=== PATIENT | male | born 1955 | race Caucasian/White ===

== ENCOUNTER 2019-10-28 14:53 | Outpatient (CLI) | payer OTHER, SELFPAY ==
--- NOTE | ~2019-10-28 | CT_ITS ---
EXAMINATION: CT brain wo con DATE: 10/28/2019 16:14 INDICATION: Right headache TECHNIQUE: Computed tomography (CT) of the head was performed without intravenous contrast. The mA wa s adjusted according to patient size. Iterative reconstruction technique was employed. Exam dose: 60 5.33 mGy-cm total exam DLP. COMPARISON: None FINDINGS: There are bilateral carotid siphon internal carotid artery calcifications. There is mild nonspecific diminished attenuation of the subcortical and periventricular cerebral whit e matter, likely due to chronic small vessel ischemic changes. No intracranial mass lesion or hemorrhage or cerebrovascular accident is evident. No midline shift or mass effect. Normal ventricular size. No subdural or epidural hematoma is evident. No orbital mass lesion is detected. No fracture or bone destruction of the cranial vault. A very small mucus retention cyst or polyp is noted in the posterior left maxillary sinus. The includ ed paranasal sinuses and mastoid air cells are otherwise unremarkable. IMPRESSION: Cerebral atherosclerosis and chronic small vessel ischemic changes of the cerebral white matter No acute intracranial finding Reviewed, dictated and finalized at [facility]. Reviewed, dictated and finalized at location [facility].
== END 2019-10-28 14:54 | disposition home or self-care (01) ==
PROVIDERS: PCP Family Medicine
DX: R51 Headache (principal); I67.2 Cerebral atherosclerosis
CPT/HCPCS: 70450

== ENCOUNTER 2024-05-30 02:29 | Emergency (ER) | payer MEDICARE, OTHER, SELFPAY ==
[2024-05-30 02:35] VITALS: BP 138/86; PULSE 103; RESP 14; TEMP 36.3; O2SAT 98
--- NOTE | 2024-05-30 04:49 | PC.NURSE ---
Pt ambulated to desk and stated he was going to go home and go to an UC when they open. Pt then ambulated out of the ED w/ a steady gait.
--- OUTSIDE RECORDS SUMMARY | 2024-06-06 02:43 | XMS_ITS | Continuity of Care Document ---
Author Organization [facility] Address [address] [place] [id number] Care Team Providers Care Superintendent Quarry Name Role Phone Jesus Sanderson Primary Care Physician Encounter [facility] Financial Number [id number] Date(s): 11/15/23 - 11/15/[address] [id number] Discharge Disposition: Home or Self Care Attending Physician: GRETA DEL VALLE Referring Physician: GRETA DEL VALLE Note * Event Display: Authorization to Treat * Event Display: Authorization to Treat Patient Care team information Care Team Personnel Name: Jesus Sanderson MD Position: ZZ FAX ONLY - MD NOT ON STAFF Member Role: Primary Care Physician Address: Address: [address] [place] [address] [place] Care Team Related Persons Name: IJEOMA MORALES
--- OUTSIDE RECORDS SUMMARY | 2024-06-06 02:43 | XMS_ITS | Continuity of Care Document ---
Author Organization [facility] Address [address] [place] [id number] Care Team Providers Care Steel Checker Name Role Phone Jesus Sanderson Primary Care Physician Encounter [facility] Financial Number [id number] Date(s): 10/02/22 - 10/02/[address] [id number] Discharge Disposition: Home or Self Care Attending Physician: Jesus Sanderson MD Admitting Physician: Jesus Sanderson MD Referring Physician: Jesus Sanderson MD Assessment and Plan Future Appointments Appointment Date:11/25/2022 03:30:00 PM Scheduled Provider:Michael Osborne MD Location:[facility] Appointment Type:[facility] VARIOUS EXCEPTIONALITIES TEACHER New Patient EKG study * Event Display: EKG Report * Event Display: EKG Regular * Event Display: EKG Regular Authored Date: [id number] Vent Rate: 46 bpm RR Interval: 1295 msec DE Interval: 189 msec QRS Duration: 107 msec QT Interval: 443 msec QTC Interval: 401 msec P-R-T Minetto: 75 - 86 - 69 degrees SINUS BRADYCARDIA incomplete right bundle-branch block No Priors Available Electronically Signed By: Kel Juares MD [facility] Note * Event Display: Authorization to Treat Authored Date: [id number] * Event Display: Authorization to Treat Authored Date: [id number] Patient Care team information Care Team Personnel Name: Jesus Sanderson MD Position: JEAN FAX ONLY - MD NOT ON STAFF Member Role: Primary Care Physician Address: Address: [address] [place] [address] Care Team Related Persons Name: IJEOMA MORALES
--- OUTSIDE RECORDS SUMMARY | 2024-06-06 02:43 | XMS_ITS | Continuity of Care Document ---
Author Organization [facility] Address [address] [place] [id number] Encounter [facility] Financial Number [id number] Date(s): 11/21/21 - 11/21/[address] [id number] Discharge Disposition: Home or Self Care Attending Physician: Narciso Altamirano MD Referring Physician: Narciso Altamirano MD
--- OUTSIDE RECORDS SUMMARY | 2024-06-06 02:43 | XMS_ITS | Continuity of Care Document ---
Author Name [facility] Organization [facility] Care Team Providers Care Communications Lead Name Role Phone [facility] Unavailable Unavailable Immunizations Combined list of available immunizations from the Department of Defense and Veterans Affairs facilities. Immunization Series Date Given Administered By Site Reaction Lot Number CVX Code Drug Motor Hotel Manager Status Comments Source influenza virus vaccine, whole virus 1 1996 Unknown, Provider [id number] [facility] (CON) complet ed influenza virus vaccine, whole virus DoD meningococcal polysaccharid e vaccine (MPSV4) 1 1996 Unknown, Provider [id number] [facility] (CON) complet ed meningoco ccal polysacch aride vaccine (MPSV4) DoD typhoid vaccine, parenteral, other than acetone-kille d, dried 1 1996 Unknown, Provider [id number] [facility] (CON) complet ed typhoid vaccine, parentera l, other than acetone-k illed, dried DoD hepatitis A vaccine, adult dosage 2 1996 Unknown, Provider [id number] A vaccine, adult dosage DoD tetanus and diphtheria toxoids, adsorbed, preservative free, for adult use (2 Lf of tetanus toxoid and 2 Lf of diphtheria toxoid) 2 1995 Unknown, Provider 09 () complet ed tetanus and diphtheri a toxoids, adsorbed, preservat pablo free, for adult use (2 Lf of tetanus toxoid and 2 Lf of diphtheri a toxoid) DoD hepatitis A vaccine, adult dosage 1 1995 Unknown, Provider 52 () complet ed hepatitis A vaccine, adult dosage DoD tetanus and diphtheria toxoids, adsorbed, preservative free, for adult use (2 Lf of tetanus toxoid and 2 Lf of diphtheria toxoid) 1 1995 Unknown, Provider 09 () complet ed tetanus and diphtheri a toxoids, adsorbed, preservat pablo free, for adult use (2 Lf of tetanus toxoid and 2 Lf of diphtheri a toxoid) [facility] typhoid vaccine, parenteral, acetone-kille d, dried ([place] ) 1 1989 Unknown, Provider 53 () complet ed typhoid vaccine, parentera l, acetone-k illed, dried ([place]. ) [facility] trivalent poliovirus vaccine, live, oral 1 1983 Unknown, Provider 02 () complet ed trivalent polioviru s vaccine, live, oral DoD yellow fever vaccine 1 1983 Unknown, Provider 37 () complet ed yellow fever vaccine [facility] Social History Combined list of available smoking, tobacco, and other social history from Department of Defense and Veterans Affairs facilities. Social History Type Response Date Comment Sourc e This section is an empty social history section. DoD
--- OUTSIDE RECORDS SUMMARY | 2024-06-06 02:43 | XMS_ITS | Continuity of Care Document ---
Author Organization [facility] Address [address] [place] [id number] Care Team Providers Care Bobtail Driver Name Role Phone Jesus Sanderson Primary Care Physician Encounter [facility] Financial Number [id number] Date(s): 08/15/22 - 08/15/[address] [id number] [place] Discharge Disposition: Home or Self Care Attending Physician: Jesus Sanderson MD Admitting Physician: Jesus Sanderson MD Referring Physician: Jesus Sanderosn MD Results Radiology Reports * Exam Date Time Procedure Performing Provider Status 08/15/22 11:39 AM US THYROID PARATHYROID NECK Celina Tompkins Hematology Supervisor; Auth (Verified) Notes: (US THYROID PARATHYROID NECK) Reason For Exam: Thyroiditis, unspecified US THYROID PARATHYROID NECK THYROID SONOGRAPHY. HISTORY: Thyroiditis, unspecified. TECHNIQUE: High frequency real time orlando scale sonography of the thyroid gland. COMPARISON: None available. FINDINGS: The right lobe of the thyroid gland measures 4.9 x 1.8 x 2.0 cm. Echotexture is heterogeneous and color-flow is within normal limits. Cysts or cystic nodules in the upper pole measures 0.7 x 0.5 cm and 0.7 x 0.6 cm. The thyroid isthmus is normal, caliber 4.1 mm. The left lobe measures 4.8 x 1.8 x 2.1 cm. Nodular heterogeneity of echotexture. An anechoic cyst in the upper pole measures 0.5 x 0.4 cm. IMPRESSION: 1. Heterogeneous thyroid parenchyma compatible with thyroiditis. 2. Bilateral subcentimeter cystic nodules or cysts. TI-RADS 1: Benign. No follow-up or needle aspiration is advocated. . Dictating Physician: Steve Kaplan M.D. Releasing Physician: Steve Kaplan M.D. Signature Electronically Authorized Authorized Date/Time: 15-AUG-2022 12:38 pm * Exam Date Time Procedure Performing Provider Status 08/15/22 2:18 PM NM BONE SCAN WHOLE BODY Asia Olivas Advanced Image Enhancement; Auth (Verified) Notes: (NM BONE SCAN WHOLE BODY) Reason For Exam: Malignant neoplasm of prostate NM BONE SCAN WHOLE BODY NUCLEAR MEDICINE WHOLE-BODY BONE SCAN INDICATION: Malignant neoplasm prostate gland. C 61 COMPARISON: NONE. FINDINGS: Delayed anterior and posterior whole-body planar imaging as well as lateral views of the skull and ribs were obtained after intravenous administration of 20 mCi of technetium 99m MDP. There is mild focal increased radiotracer uptake involving the shoulders and knees which is likely degenerative. Normal physiologic uptake seen within the kidneys and urinary bladder. There is no evidence of osseous metastatic disease. IMPRESSION: No evidence of osseous metastatic disease. . Dictating Physician: Pepe Bhatia M.D. Releasing Physician: Pepe Bhatia M.D. Signature Electronically Authorized Authorized Date/Time: 15-AUG-2022 03:55 pm Note * Event Display: Authorization to Treat Authored Date: [id number] * Event Display: Authorization to Treat Authored Date: [id number] * Steve Kaplan M.D.: VERIFY, VERIFY, PERFORM Event Display: Interpretation: Authored Date: [id number] THYROID SONOGRAPHY. HISTORY: Thyroiditis, unspecified. TECHNIQUE: High frequency real time orlando scale sonography of the thyroid gland. COMPARISON: None available. FINDINGS: The right lobe of the thyroid gland measures 4.9 x 1.8 x 2.0 cm. Echotexture is heterogeneous and color-flow is within normal limits. Cysts or cystic nodules in the upper pole measures 0.7 x 0.5 cm and 0.7 x 0.6 cm. The thyroid isthmus is normal, caliber 4.1 mm. The left lobe measures 4.8 x 1.8 x 2.1 cm. Nodular heterogeneity of echotexture. An anechoic cyst in the upper pole measures 0.5 x 0.4 cm. IMPRESSION: 1. Heterogeneous thyroid parenchyma compatible with thyroiditis. 2. Bilateral subcentimeter cystic nodules or cysts. TI-RADS 1: Benign. No follow-up or needle aspiration is advocated. . Dictating Physician: Steve Kaplan M.D. Releasing Physician: Steve Kaplan M.D. Signature Electronically Authorized Authorized Date/Time: 15-AUG-2022 12:38 pm NM Whole body Bone Views * Pepe Bhatia M.D.: VERIFY, VERIFY, PERFORM Event Display: Interpretation: Authored Date: [id number] NUCLEAR MEDICINE WHOLE-BODY BONE SCAN INDICATION: Malignant neoplasm prostate gland. C 61 COMPARISON: NONE. FINDINGS: Delayed anterior and posterior whole-body planar imaging as well as lateral views of the skull and ribs were obtained after intravenous administration of 20 mCi of technetium 99m MDP. There is mild focal increased radiotracer uptake involving the shoulders and knees which is likely degenerative. Normal physiologic uptake seen within the kidneys and urinary bladder. There is no evidence of osseous metastatic disease. IMPRESSION: No evidence of osseous metastatic disease. . Dictating Physician: Pepe Bhatia M.D. Releasing Physician: Pepe Bhatia M.D. Signature Electronically Authorized Authorized Date/Time: 15-AUG-2022 03:55 pm Patient Care team information Care Team Personnel Name: Jesus Sanderson MD Position: ZZ FAX ONLY - MD NOT ON STAFF Member Role: Primary Care Physician Address: Address: [address] [place] [address] [place] Care Team Related Persons Name: IJEOMA MORALES
--- OUTSIDE RECORDS SUMMARY | 2024-06-06 02:44 | XMS_ITS | Encounter Summary ---
Author Organization [facility] Address [address] [place] [address] Care Team Providers Care Paraprofessional Aide Name Role Phone Unavailable Primary Care Provider Unavailabl e Encounter Details Date Type Department Care Team (Late st Contact Info) Description 03/02/2024 External Device Data [facility] ABSTRACTION Provider, Abstract NO ADDRESS ON FILE Social History Tobacco Use Types Packs/Day Years Used Date Smoking Tobacco: Never Assessed Sex and Gender Information Value Date Recorded Sex Assigned at Not on file Gender Identity Not on file Sexual Orientation Not on file documented as of this encounter Plan of Treatment Not on file documented as of this encounter Visit Diagnoses Not on filedocumented in this encounter
--- OUTSIDE RECORDS SUMMARY | 2024-06-06 02:44 | XMS_ITS | Clinical Summary ---
Author Organization [facility] Address [address] [place] [address] Care Team Providers Care Sole Painter Name Role Phone Unavailable Primary Care Provider Unavailabl e Medications Medication Sig Dispensed Refills Start Date End Date Status thyroid, pork, (COAT CHECKER Thyroid) 60 mg tablet Take 1 Tablet (60 mg) by mouth once daily in the evening 90 Tablet 1 02/28/2024 Active tamsulosin (FLOMAX) 0.4 mg capsule Take 1 Capsule (0.4 mg) by mouth daily. 5 Capsule 03/12/2024 Active cephALEXin (KEFLEX) 500 mg capsule Take 1 Capsule (500 mg) by mouth every 12 hours for 7 days. 14 Capsule 05/30/2024 06/06/2024 Active mupirocin (BACTROBAN) 2 % Ointment APPLY TO AFFECTED AREA TWICE DAILY NEEDED. 22 Gram 05/30/2024 Active Encounters Date Type Department Care Team Description 04/07/2024 External Device Data [facility] ABSTRACTION Provider, Abstract 03/09/2024 External Device Data [facility] ABSTRACTION Provider, Abstract from Last 3 Months Social History Tobacco Use Types Packs/Day Years Used Date Smoking Tobacco: Never Assessed Sex and Gender Information Value Date Recorded Sex Assigned at Not on file Gender Identity Not on file Sexual Orientation Not on file Plan of Treatment Health Maintenance Due Date Last Done Comments DTAP/TDAP/TD VACCINES (1 - Tdap) 1973 COLORECTAL SCREENING 12/03/1999 Colorectal Cancer Screening 12/03/1999 FIT-DNA Q 3 years 12/03/1999 FIT/FOBT Q 1 year 12/03/1999 Flex Sig/CT Colonography Q 5 years 12/03/1999 ZOSTER VACCINE (1 of 2) 2004 PNEUMOCOCCAL VACCINE 65+ YEARS (1 of 1 - PCV) 12/03/19 20 INFLUENZA VACCINE (#1) 2024 RSV VACCINE (60+ or ) (1 - 1-dose 75+ series) 2029
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
--- OUTSIDE RECORDS SUMMARY | 2024-06-06 02:44 | XMS_ITS | Encounter Summary ---
Author Organization [facility] Address [address] [place] [address] Care Team Providers Care Radiation Oncology Manager Name Role Phone Unavailable Primary Care Provider [...]
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
--- OUTSIDE RECORDS SUMMARY | 2024-06-06 02:44 | XMS_ITS | Encounter Summary ---
Author Organization [facility] Address [address] [place] [address] Care Team Providers Care Assistant Community Director Name Role Phone Unavailable Primary Care Provider Unavailabl e Encounter Details Date Type Department Care Team (Late st Contact Info) Description 03/09/2024 External Device Data ST[facility] ABSTRACTION Provider, [...]
--- OUTSIDE RECORDS SUMMARY | 2024-06-06 02:44 | XMS_ITS | Encounter Summary ---
Author Organization [facility] Address [address] [place] [address] Care Team Providers Care Administrator Health Care Facility Name Role Phone Unavailable Primary Care Provider Unavailabl e Encounter Details Date Type Department Care Team (Late st Contact Info) Description 04/07/2024 External Device Data ST[facility] ABSTRACTION [...]
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
--- OUTSIDE RECORDS SUMMARY | 2024-06-06 02:44 | XMS_ITS | Data Portability ---
Author Organization [facility], [facility] Address [address] [place] [address] Assessment No assessment recorded. Plan of Treatment Reminders Order Date Submit Date Provider Last Modified By Organization Details Last Modified Time Details Appointments None recorded . Lab PSA, total + free, serum or plasma 020 06/29/19 20 STEPHEN Not available 0 16:39:23 Referral None recorded . Procedures None recorded . Surgeries None recorded . Imaging None recorded . Medication Orders None recorded . Patient TargetsNo targets recorded. Patient Instructions Encounter Date Encounter Id Patient Instructions Last Modified By Organization Details Last Modified Time 06/29/2019 [id number] learning about high blood sugar cwessling Not available 06/29/2019 15:13:05 prostate biopsy: about this test c[place] Not available 06/29/2019 15:11:29 high cholesterol : care instructions cw[place]ling Not available 06/29/2019 15:11:29 Hailey GI Effects cwessling Not availabl e 06/29/2019 15:11:05 Reason for Referral None Reported. Results Created Date Observation Date Name Description Value Unit Range Abnormal Flag Note LastModifiedBy Organization Detail LastModifiedTime 11/27/19 22 MRI, prost ate, w/wo contr ast No observ ation record ed. cwessling Not Available 2021 23:54:31 Result Notes None recorded. Problems No Known Problems Procedures Surgical History None recorded. Imaging Results Imaging Date Name Status LastModified by Organiz ation Details LastModified Time 11/26/2021 MRI, prostate, w/wo contrast completed cw[place]ling Information not available 11/26/2021 23:54:31 Procedure Notes None recorded. Medical Equipment None Reported. Allergies No known drug allergies Medications Not known to be on any medication Vitals Date Recorded Body height Body mass index (BMI) Body weight Heart rate Systolic blood pressure Diastolic blood pressure Provider Name and Address Organization Details Last Updated DateTime 0 185.42 cm 26.3 kg/m2 91929.8 8 g 56 /min 105 mm[Hg] 66 mm[Hg] Anne Shanthi GR[facility] 0 12:58:57 Social History None recorded. Functional Status None recorded. Mental Status None recorded. Family History Relationship Description Onset Age of this Age Resolved Age Notes LastModified by Organization Details LastModified Time Father Hypothyroidi sm smimms Not available 2019 13:01:21 Father Malignant tumor of prostate 75 85 Eventu ally of it with bone metast ases. cwessling Not available 06/29/2019 14:13:31 Brother Malignant tumor of prostate 72 recent ly underw ent surger y. cwessling Not available 06/29/2019 14:15:30 Mother Malignant tumor of breast 75 95 trated with lumpec isela and never recurr ed cwessling Not available 06/29/2019 14:17:12 Sister Ductal carcinoma in situ of breast 65 cwessling Not available 2019 14:17:44 Sister Malignant tumor of oral cavity 57 succes sfully treate d. cwessling Not available 06/29/2019 14:19:24 Medical History Condition Response Coronary Artery Disease N Gout N Kidney Stones N Blood Diseases N Hyperthyroidism N Depression N COPD N Hypothyroidism N Developmental or Behavioral Disorders N Anxiety Disorder N Muscle, Joint, or Bone Problems N Vision or Eye Problems N Arthritis N Head Injury/Concussion N Congenital Anomalies N Cancer N Stroke N ADHD N Bladder or Kidney Problems N Hospital Admission other than N High Cholesterol N Liver Disease N Fibromyalgia N Headaches N Kidney Disease N Ear or Hearing Problems N Thyroid Problems N Skin Problems N Anemia N Constipation N Mental Illness N Diabetes N Bedwetting N Heart Problems/Murmur N Seizures/Epilepsy N Tuberculosis N Diverticulitis N Asthma N Allergies N Reflux/GERD N Heart Disease N Pulmonary Embolism N Hypertension N Chicken Pox Y Autism Spectrum Disorder (ASD) N Osteoporosis N Past Encounters Encounter ID Performer Location Encounter Start Date Encounter Closed Date Diagnosis/Indication Diagnosis SNOMED-CT Code Diagnosis ICD10 Code [id number] Ifeanyi Nascimento MD Main Office [address] [place] [address] 06/29/2019 12:45:10 06/29/2019 15:15:20 Prostate specific antigen above reference range 920881130 R97.20 Chronic steatorrhea 2786 8004 K90.9 Bacterial overgrowth syndrome 23312590 A04.9 Hyperlipidemia 59516045 E78.5 Hyperglycemia 15347620 R 73.9 Health Concerns Section Related Observation LastModified by Organization Detai ls LastModified Time None Recorded Concern Status LastModified by Organization Details LastModified Time None Recorded Advance Directives Directive None Recorded Payers Encounter Date Sequence Insurance Name Policy Number Policy Yang Covered Member ID Yang Member ID Guarantor Name 06/29/2019 1 *SELF PAY* [facility] Marquez Notes Date Note Type Note Provider Name and Address Organization Details Recorded Time 06/29/2019 text/html Get established.Previo us 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 Energy not what it could be. PSA high 4-8 - michelle from 6.7 with 13% free conferring 24% cancer risk; to 8.25 (free not tested) in May 2019. 5th of 9 siblings - has 2 brothers 6 sisters. 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 lives of 37 years in [facility]. 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 Digestion slow intermittent constipation and relies on 3-4/week coffee enemas.< carbsCarbs affect badly - inflammation bloating (processed).Lost from 225 to 185 on Keto diet. TC 252, TG 83, HDL 72, LDL 171 on Keto, A1c was 5.7Core workout in the morning.Daily 2 mile walk. Takes D3 16,000 k/day. Ifeanyi Nascimento MD [address] [facility] [facility], [place], [address], [facility] 06/29/2019 15:13:14
--- OUTSIDE RECORDS SUMMARY | 2024-06-06 02:44 | XMS_ITS | Encounter Summary ---
Author Organization [facility] Address [address] [place] [address]. [place], [place] [address] [place] [address] Care Team Providers Care Rv Mechanic Name Role Phone Josesito Alfred MD Primary Care Provider [phone] Reason for Visit * Reason Comments Back Pain * Physical Therapy (Routine) - Closed Specialty Diagnoses / Procedures Referred By Marco hammond Referred To Contact PHYSICAL THERAPY / [facility] Physical Therapy Diagnoses Cervicalgia Low back pain Other chronic pain neck/back/knee pain Procedures EVAL 60 MIN Josesito Alfred MD [address] [place] [address] Phone: tel: fax: Lucy Malave, PT Referral ID Status Reason Start Date Expiration Date Visits Re quested Visits Authorized [id number] Closed 02/04/2018 02/05/2019 12 12 Encounter Details Date Type Department Care Team (Late st Contact Info) Description 03/04/2018 5:15 PM CDT Office Visit [facility] Physical Therapy [address] [place] [address], [address] [place] [address] Josesito Alfred MD [address] [place] [address] Lucy Malave, PT Back Pain Social History Tobacco Use Types Packs/Day Years Used Date Smoking Tobacco: Never Assessed Sex and Gender Information Value Date Recorded Sex Assigned at Not on file Legal Sex Male 11:18 AM CDT Gender Identity Not on file Sexual Orientation Not on file documented as of this encounter Progress Notes * Lucy Singh Frieda, PT - 03/04/2018 5:15 PM CDT @SHMUEL@ Dept Physical Therapy Progress Note Patient name: Jama Marquez : 1955 Date: 03/04/18 Diagnosis (medical/treatment): The primary encounter diagnosis was Chronic bilateral low back pain without sciatica. Diagnoses of Acute pain of right knee and Neck pain were also pertinent to this visit. Date of reporting period from 02/04/2018 to 03/04/2018 Visits: 7 Cancel/No shows: 0 Subjective: Pain Level: 1/10 Current Function: Able to put pants on while standing without pain. Sleeping through the night. No pain bending over. When lifts and caries with his left UE the pain he has in his left forearm lima a2. When not using forearm does not have pain. Patient Goals: 1. To be stronger. MET 2. To be Pain free. MET Objective Data: Eval Status (02/04/2018) Current Status (03/04/2019) Posture: standing slight sway back posture, weight shifted left, right knee slightly bent , scapulae elevated And slightly abducted. Sits with head severely forward and extended. *Posture: standing slight sway back posture, weight shifted left, right knee slightly bent , scapulae elevated And slightly abducted. Sits with head severely forward and extended. Lumbar AROM: Flexion:WNL minimal central lumbar/sacral pain Extension:30 % pain across lumbar/sacral region Side glide:75% right and left Rotation:60% right and left. Cervical AROM: Flexion: WNL tightness Extension WNL no pain Side bending 30 degrees right no pain and 20 degrees left with pain Rotation: 60 degrees right and left no pain Lumbar AROM: Flexion:WNL Extension:100 % no pain. Side glide:100% right and left Rotation:WNL right and left. Cervical AROM: Flexion: WNL tightness Extension WNL no pain Side bending 35 degrees right no pain and 32 degrees left with pain Rotation: 65 degrees right and left no pain Strength: LE Hip flexion: 4+ R&L Hip extension:$ R&L substitutes trunk rotation. Hip ER:4 R&L Hip IR: 4 R&L Hip abduction:4- R&L Hip adduction:4 R&L ?? Knee extension: 4+ R&L Knee flexion: 4+ R&L ?? Core: Upper abdominals:4 Lower abdominals:4- Back extensors:4- Strength: LE Hip flexion: 4+ R&L Hip extension:$ R&L substitutes trunk rotation. Hip ER:4+ R&L Hip IR: 4 +R&L Hip abduction:4 R&L Hip adduction:4 R&L ?? Knee extension: 4+ R&L Knee flexion: 4+ R&L ?? Core: Upper abdominals:4 Lower abdominals:4- Back extensors:4 Good SI movement and alignment during Marching and side bending test for 3 visits. Palpation: Very tender to palpation of suboccipital , pectoral , hip flexors and lumbar paraspinal muscles. Palpation: Minimally tender to palpation of left wrist extensor muscles. Posture: standing slight sway back posture, weight shifted left, right knee slightly bent , scapulae elevated And slightly abducted. Sits with head severely forward and extended. Posture: standing erect without sway back posture, weight even between LE , scapulae only slightly elevated And slightlyabducted. Sits with head aligned over shoulder. See flow sheet for today's treatment. Therapy Goals: (Goals to be met by 03/08/2018) 1. Increase ROM of cervical and lumbar spine to WNL for side bending and rotation so patient can put pants on without pain and can turn his head freely when driving.MET 2. Good Posture/body Mechanics stand erect without sway back posture with moderate lumbar lordosis and head aligned over shoulders.Mostly Met. 3. Independent HEP for trunk, LE and cervical ROM, strengthening and stretching.MET 4. Decrease pain 0-1 on 0-10 scale so patient consistently sleeps through the night.MET 5. Decrease muscle spasm/tissue tension in cervical, left elbow Lumbar, and pelvic region PartiallyMet 6. Increase strength 4+ through out hip muscle, and 4 through out core so patient is able to Put his pants on without pain and can turn head freely while driving. 7. Other: Good SI movement and alignment during marching and side bending test for 3 visits. Assessment Statement: Patient has Met or partially met personal and PT goals. Patient would like tohold out patient therapy for two weeks to continue with home exercises and to see if improvements stay. Non-Medicare Recommendations: Hold therapy for 2 weeks. Therapist: ASHLEY MALAVE PT Date: 03/04/18 Time: 5:30 PM I certify that the above rehabilitative services are required, authorized, and reviewed. Physician signature: Date: Time: Patient Name: Jama Marquez : 1955 documented in this encounter Plan of Treatment Not on file documented as of this encounter Visit Diagnoses Diagnosis Chronic bilateral low back pain without sciatica- Primary Acute pain of right knee Neck pain Cervicalgia documented in this encounter Care Teams Rv Mechanic Relationship Specialty Start Date End Date Josesito Alfred MD [address] [place] [address] PCP - General FAMILY PRACTICE 02/02/18 documented as of this encounter
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
--- OUTSIDE RECORDS SUMMARY | 2024-06-06 02:44 | XMS_ITS | Clinical Summary ---
Author Organization [facility] Address [address] [place] [address]. [place], [place] [address] [place] [address] Care Team Providers Care Integrative Medicine Physician Name Role Phone Josesito Alfred MD Primary Care Provider [phone] Social History Tobacco Use Types Packs/Day Years Used Date Smoking Tobacco: Never Assessed Sex and Gender Information Value Date Recorded Sex Assigned at Not on file Legal Sex Male 11:18 AM CDT Gender Identity Not on file Sexual Orientation Not on file Plan of Treatment Health Maintenance Due Date Last Done Comments Colorectal Cancer Screening Colonoscopy (10 Years) 1955 Hepatitis C 1972 DTaP, Tdap and Td Vaccines ( 1 - Tdap) 1973 Zoster Vaccines (1 of 2) 2004 Pneumococcal Vaccine: 65+ Ye ars (1 of 1 - PCV) 12/03/2019 COVID-19 Vaccine ( - 2023-2 5 season) 2024 Influenza Adult (#1) 2024 RSV Immunization or 60+ Years (1 - 1-dose 75+ series) 2029 Meningococcal Vaccine Aged Out No mp carol eligible based on patient's age to complete this topic RSV Immunizations Under 20 Months Aged Out No longer eligible based on patient's age to complete this topic Insurance [employer] on file Care Teams Integrative Medicine Physician Relationship Specialty Start Date End Date Josesito Alfred MD [address] [place] [address] PCP - General FAMILY PRACTICE 02/02/18
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
--- OUTSIDE RECORDS SUMMARY | 2024-06-06 03:41 | XMS_ITS | Encounter Summary ---
Author Organization [facility] Address [address] [place] [address]. [place], [place] [address] [place] [address] Care Team Providers Care Oil Lease Broker Name Role Phone Josesito Alfred MD Primary Care Provider [phone] Reason for Visit * Reason Comments Back Pain Neck Pain Jnt Pain/Knee * Physical Therapy (Routine) - Closed Specialty Diagnoses / Procedures Referred By Marco hammond Referred To Contact PHYSICAL THERAPY / [facility] Physical Therapy Diagnoses Cervicalgia Low back pain Other chronic pain neck/back/knee pain Procedures EVAL 60 MIN Josesito Alfred MD [address] [facility] [place] [place] [address] Phone: tel: fax: Lucy Malave PT Referral ID Status Reason Start Date Expiration Date Visits Re quested Visits Authorized [id number] Closed 02/04/2018 02/05/2019 12 12 Encounter Details Date Type Department Care Team (Late st Contact Info) Description 02/04/2018 5:15 PM CDT Office Visit [facility] Physical Therapy [address] [place] [address], [address] [place] [address] Josesito Alfred MD [address] [facility] [place] [address] Lucy Malave, PT Back Pain; [...] Cervicalgia documented in this encounter Care Teams Oil Lease Broker Relationship Specialty Start Date End Date Josesito Alfred MD [address] [place] [address] PCP - General FAMILY PRACTICE 02/02/18 documented as of this encounter
--- OUTSIDE RECORDS SUMMARY | 2024-06-06 03:41 | XMS_ITS | Encounter Summary ---
Author Organization [facility] Address [address] [place] [address]. [place], [place] [address] [place] [address] Care Team Providers Care Chronic Disease Manager Name Role Phone Josesito Alfred MD Primary Care Provider Reason for Visit * Reason Comments Back Pain * Physical Therapy (Routine) - Closed Specialty Diagnoses / Procedures Referred By Marco hammond Referred To Contact PHYSICAL THERAPY / [facility] Physical Therapy Diagnoses Cervicalgia Low back pain Other chronic pain neck/back/knee pain Procedures EVAL 60 MIN Josesito Alfred MD [address] [address] Phone: tel: fax: Lucy Malave, PT Referral ID Status Reason Start Date Expiration Date Visits Re quested Visits Authorized [id number] Closed 02/04/2018 02/05/2019 12 12 Encounter Details Date Type Department Care Team (Late st Contact Info) Description 03/04/2018 5:15 PM CDT Office Visit [facility] Physical Therapy [address] [place] [address], [address] [place] [address] Josesito Alfred MD [address] [address] Lucy Malave, PT Back Pain [...] Cervicalgia documented in this encounter Care Teams Chronic Disease Manager Relationship Specialty Start Date End Date Josesito Alfred MD [address] [place] [address] PCP - General FAMILY PRACTICE 02/02/18 documented as of this encounter
--- OUTSIDE RECORDS SUMMARY | 2024-06-06 03:41 | XMS_ITS | Encounter Summary ---
Author Organization [facility] Address [address] [place] [address]. [place], [place] [address] [place] [address] Care Team Providers Care Mock Up Builder Name Role Phone Josesito Alfred MD Primary Care Provider [phone] Reason for Visit * Reason Comments Back Pain * Physical Therapy (Routine) - Closed Specialty Diagnoses / Procedures Referred By Marco hammond Referred To Contact PHYSICAL THERAPY / [facility] Physical Therapy Diagnoses Cervicalgia Low back pain Other chronic pain neck/back/knee pain Procedures EVAL 60 MIN Josesito Alfred MD [address] [address] Phone: tel: fax: Lucy Malave, PT Referral ID Status Reason Start Date Expiration Date Visits Re quested Visits Authorized [id number] Closed 02/04/2018 02/05/2019 12 12 Encounter Details Date Type Department Care Team (Late st Contact Info) Description 02/27/2018 1:00 PM CDT Office Visit [facility] Physical Therapy [address] [place] [address], [address] [place] [address] Josesito Alfred MD [address] [address] Lucy Malave, PT Back Pain [...] and side bending test. Therapeutic Exercise - 88506 Number of minutes: 25 Exercise: Single leg bridge. 10 reps Exercise: Demonstrated wrist flexion with 3 #. Patient to do as part of HEP on Friday. Exercise: wrist extension stretch 20 second hold times 2 ,1 set with fingers flexed initially and 1set flexing wrist than fingers Exercise: Rep band shoulder IR and ER with blue band 20 reps right and left. Exercise: Sri [place]ankan ball walk out in prone and sitting 10 reps each Exercise: core pulls bilateral flexion and extension 10 reps each.Added unilateral UE flexion 10 reps right and left. Verbal cues to prevent shifting weight Manual Therapy - 62696 Number of minutes: 20 Strain-Counterstrain: to MCND. LCND.Pronator, ANC, Radial head. Brachioradialis. Home Exercise Program Current Home Exercise Program: Added single leg bridge. rwandan ball rollouts supine and prone rep band [...] Cervicalgia documented in this encounter Care Teams Mock Up Builder Relationship Specialty Start Date End Date Josesito Alfred MD [address] [address] PCP - General FAMILY PRACTICE 02/02/18 documented as of this encounter
--- OUTSIDE RECORDS SUMMARY | 2024-06-06 03:41 | XMS_ITS | Encounter Summary ---
Author Organization [facility] Address [address] [place] [address]. [place], [place] [address] [place] [address] Care Team Providers Care Barge Pilot Name Role Phone Josesito Alfred MD Primary Care Provider [phone] Reason for Visit * Reason Comments Back Pain * Physical Therapy (Routine) - Closed Specialty Diagnoses / Procedures Referred By Marco hammond Referred To Contact PHYSICAL THERAPY / [facility] Physical Therapy Diagnoses Cervicalgia Low back pain Other chronic pain neck/back/knee pain Procedures EVAL 60 MIN Josesito Alfred MD [address] [place] [address] Phone: tel: fax: Lucy Malave, PT Referral ID Status Reason Start Date Expiration Date Visits Re quested Visits Authorized [id number] Closed 02/04/2018 02/05/2019 12 12 Encounter Details Date Type Department Care Team (Late st Contact Info) Description 02/23/2018 12:45 PM CDT Office Visit [facility] Physical Therapy [address] [place] [address], [address] [place] [address] Josesito Alfred MD [address] [place] [address] Lucy Malave, PT Back Pain [...] Right anterior innomminate rotation. Therapeutic Exercise - 98472 Number of minutes: 30 Exercise: Contralateral UE [...] prone press up 5 reps Exercise: supine japanese ball DKTC and LTR Manual Therapy - 97029 Number of minutes: 8 Muscle Energy: to correct right anterior innominate rotation. Modalities Number of minutes (Non-Timed Procedures): 20 Electrical Stimulation Unattended - 52373: Pre-modulated Stim with cold pack to mid-thoracic [...] Cervicalgia documented in this encounter Care Teams Barge Pilot Relationship Specialty Start Date End Date Josesito Alfred MD [address] [place] [address] PCP - General FAMILY PRACTICE 02/02/18 documented as of this encounter
--- OUTSIDE RECORDS SUMMARY | 2024-06-06 03:41 | XMS_ITS | Continuity of Care Document ---
Author Name [facility] Organization [facility] Care Team Providers Care Insulation Worker Apprentice Name Role Phone [facility] Unavailable Unavailable Immunizations Combined list of available immunizations from the Department of Defense and Veterans Affairs facilities. Immunization Series Date Given Administered By Site Reaction Lot Number CVX Code Drug Reference Investigator Status Comments Source influenza virus vaccine, whole virus 1 1996 Unknown, Provider [id number] Jesika (CON) complet ed influenza virus vaccine, whole virus DoD meningococcal polysaccharid e vaccine (MPSV4) 1 1996 Unknown, Provider [id number] Jesika (CON) complet ed meningoco ccal polysacch aride vaccine (MPSV4) DoD typhoid vaccine, parenteral, other than acetone-kille d, dried 1 1996 Unknown, Provider [id number] Jesika (CON) complet ed typhoid vaccine, parentera l, other than acetone-k illed, dried DoD hepatitis A vaccine, adult dosage 2 1996 Unknown, Provider [id number] [facility] hepatitis A [...] and 2 Lf of diphtheri a toxoid) [facility] typhoid vaccine, parenteral, acetone-kille d, dried ([place] ) 1 1989 Unknown, Provider 53 () complet ed typhoid vaccine, parentera l, acetone-k illed, dried ([place] ) [facility] trivalent poliovirus vaccine, live, oral 1 1983 Unknown, Provider 02 () complet ed trivalent polioviru s vaccine, live, oral DoD yellow fever vaccine 1 1983 Unknown, Provider 37 () complet ed yellow fever vaccine [facility] Social History Combined list of available smoking, tobacco, and other social history from Department of Defense and Veterans Affairs facilities. Social History Type Response Date Comment Sourc e This section is an empty social history section. DoD
--- OUTSIDE RECORDS SUMMARY | 2024-06-06 03:41 | XMS_ITS | Clinical Summary ---
Author Organization [facility] Address [address] [place] [address]. [place], [place] [address] [place] [address] Care Team Providers Care Station Engineer Chief Name Role Phone Josesito Alfred MD Primary Care Provider [phone] Social History Tobacco Use Types Packs/Day Years [...] MEDICAL REIMBURSEMENTS OF [employer] LIABILITY on file Care Teams Station Engineer Chief Relationship Specialty Start Date End Date Josesito Alfred MD [address] [address] PCP - General FAMILY PRACTICE 02/02/18
--- OUTSIDE RECORDS SUMMARY | 2024-06-06 03:41 | XMS_ITS | Encounter Summary ---
Author Organization [facility] Address [address] [place] [address]. [place], [place] [address] [place] [address] Care Team Providers Care Distribution Sales Manager Name Role Phone Josesito Alfred MD Primary Care Provider [phone] Reason for Visit * Reason Comments Back Pain * Physical Therapy (Routine) - Closed Specialty Diagnoses / Procedures Referred By Contgenevieve t Referred To Contact PHYSICAL THERAPY / [facility] Physical Therapy Diagnoses Cervicalgia Low back pain Other chronic pain neck/back/knee pain Procedures EVAL 60 MIN oJsesito Alfred MD [address] [address] Phone: tel: fax: Lucy Malave, PT Referral ID Status Reason Start Date Expiration Date Visits Re quested Visits Authorized [id number] Closed 02/04/2018 02/05/2019 12 12 Encounter Details Date Type Department Care Team (Late st Contact Info) Description 02/12/2018 1:00 PM CDT Office Visit [facility] Physical Therapy [address] [facility] [facility], [address] [place] [address] Josesito Alfred MD [address] [address] Tereza Henderson, [place] [address] Back Pain Social History Tobacco Use Types [...] OBJECTIVE Treatment provided today: Therapeutic Exercise - 76887 Number of minutes: 15 Exercise: Reviewed HEP Exercise: Adjusted Scap retraction without pushing with arms x10 Exercise: Added cervical retratction x10 Exercise: Abdominal Brace (Sahrhamm)- Ams and legs reciprocating x15-20 reps Exercise: Attempted core pulls with orange and [place] band however felt more in quads so help this exercises. Manual Therapy - 30262 Number of minutes: 30 Joint Mobilization: thoracic [...] Cervicalgia documented in this encounter Care Teams Distribution Sales Manager Relationship Specialty Start Date End Date Josesito Alfred MD [address] [address] PCP - General FAMILY PRACTICE 02/02/18 documented as of this encounter
--- OUTSIDE RECORDS SUMMARY | 2024-06-06 03:41 | XMS_ITS | Encounter Summary ---
Author Organization [facility] Address [address] [place] [address]. [place], [place] [address] [place] [address] Care Team Providers Care Vp Care Management Name Role Phone Josesito Alfred MD Primary Care Provider [phone] Reason for Visit * Reason Comments Back Pain * Physical Therapy (Routine) - Closed Specialty Diagnoses / Procedures Referred By Marco hammond Referred To Contact PHYSICAL THERAPY / [facility] Physical Therapy Diagnoses Cervicalgia Low back pain Other chronic pain neck/back/knee pain Procedures EVAL 60 MIN Josesito Alfred MD [address] [place] [address] Phone: tel: fax: Lucy Malave, PT Referral ID Status Reason Start Date Expiration Date Visits Re quested Visits Authorized [id number] Closed 02/04/2018 02/05/2019 12 12 Encounter Details Date Type Department Care Team (Late st Contact Info) Description 02/13/2018 8:45 AM CDT Office Visit [facility] Physical Therapy [address] [place] [address], [address] [place] [address] Josesito Alfred MD [address] [place] [address] Lucy Malave, PT Back Pain [...] OBJECTIVE Treatment provided today: Therapeutic Exercise - 88215 Number of minutes: 15 Exercise: Reviewed Scapula adduction with depression and abdominal exercise. Exercise: T-wall stretch 30 second hold 3 reps and exercise 10 reps Manual Therapy - 75133 Number of minutes: 45 Strain-Counterstrain: SCS to [...] Cervicalgia documented in this encounter Care Teams Vp Care Management Relationship Specialty Start Date End Date Josesito Alfred MD [address] [address] PCP - General FAMILY PRACTICE 02/02/18 documented as of this encounter
--- OUTSIDE RECORDS SUMMARY | 2024-06-06 03:41 | XMS_ITS | Encounter Summary ---
Author Organization [facility] Address [address] [place] [address]. [place], [place] [address] [place] [address] Care Team Providers Care Commissary Representative Name Role Phone Josesito Alfred MD Primary Care Provider Reason for Visit * Reason Comments Back Pain * Physical Therapy (Routine) - Closed Specialty Diagnoses / Procedures Referred By Marco hammond Referred To Contact PHYSICAL THERAPY / [facility] Physical Therapy Diagnoses Cervicalgia Low back pain Other chronic pain neck/back/knee pain Procedures EVAL 60 MIN Josesito Alfred MD [address] [address] Phone: tel: fax: Lucy Malave, PT Referral ID Status Reason Start Date Expiration Date Visits Re quested Visits Authorized [id number] Closed 02/04/2018 02/05/2019 12 12 Encounter Details Date Type Department Care Team (Late st Contact Info) Description 02/16/2018 4:00 PM CDT Office Visit [facility] Physical Therapy [address] [place] [address], [address] [place] [address] Josesito Alfred MD [address] [address] Lucy Malave, PT Back Pain [...] and side bending test. Therapeutic Exercise - 66442 Number of minutes: 15 Exercise: passive back flexion into prone press up 10 second stretch 5 reps. Exercise: prone press up 10 second hold 10 reps, prone back extension 10 reps verbal cues for cervical retraction vs. extension. Exercise: thoracic extension in sitting 10 second hold x 10 reps. Manual Therapy - 41216 Number of minutes: 25 Mobilization: thoracic PA's from T4 -T10,to increase extension ROM and thoracic distraction in sitting 3 reps. Muscle Energy: to correct left out flair Strain-Counterstrain: left Lower Trap, right thoracolumbar erector spinae, right IL and pectineus, left ING and [place], Modalities Number of minutes (Non-Timed Procedures): 20 Electrical Stimulation Unattended - 15869: Pre-modulated Stim with cold pack to mid-thoracic [...] Cervicalgia documented in this encounter Care Teams Commissary Representative Relationship Specialty Start Date End Date Josesito Alfred MD [address] [address] PCP - General FAMILY PRACTICE 02/02/18 documented as of this encounter
--- OUTSIDE RECORDS SUMMARY | 2024-06-06 03:41 | XMS_ITS | Encounter Summary ---
Author Organization [facility] Address [address] [place] [address]. [place], [place] [address] [place] [address] Care Team Providers Care Firer Retort Name Role Phone Josesito Alfred MD Primary Care Provider [phone] Reason for Visit * Reason Comments Back Pain * Physical Therapy (Routine) - Closed Specialty Diagnoses / Procedures Referred By Marco hammond Referred To Contact PHYSICAL THERAPY / [facility] Physical Therapy Diagnoses Cervicalgia Low back pain Other chronic pain neck/back/knee pain Procedures EVAL 60 MIN Josesito Alfred MD [address] [address] Phone: tel: fax: Lucy Malave, PT Referral ID Status Reason Start Date Expiration Date Visits Re quested Visits Authorized [id number] Closed 02/04/2018 02/05/2019 12 12 Encounter Details Date Type Department Care Team (Late st Contact Info) Description 02/19/2018 1:00 PM CDT Office Visit [facility] Physical Therapy [address] [place] [address], [address] [place] [address] Josesito Alfred MD [address] [address] Lucy Malave, PT Back Pain [...] and side bending test. Therapeutic Exercise - 03975 Number of minutes: 25 Exercise: prone press [...] and exercises 10 reps. Manual Therapy - 64388 Number of minutes: 15 Mobilization: thoracic PA's from T4 -T10,to increase extension ROM and thoracic distraction in sitting 3 reps. Muscle Energy: No corrections needed Strain-Counterstrain: Left prone flexed L2, bilateral serratus posterior inferior to decrease muscle tension in upper lumbar lower thoracic region.. Modalities Number of minutes (Non-Timed Procedures): 20 Electrical Stimulation Unattended - 56565: Pre-modulated Stim with cold pack to mid-thoracic [...] Cervicalgia documented in this encounter Care Teams Firer Retort Relationship Specialty Start Date End Date Josesito Alfred MD [address] [address] PCP - General FAMILY PRACTICE 02/02/18 documented as of this encounter
--- OUTSIDE RECORDS SUMMARY | 2024-06-06 03:42 | XMS_ITS | Clinical Summary ---
Author Organization [facility] Address [address] [place] [address] Care Team Providers Care Accounts Receivable Collector Name Role Phone Unavailable Primary Care Provider Unavailabl e Medications Medication Sig Dispensed Refills Start Date End Date Status thyroid, pork, (FIELD AGENT Thyroid) 60 mg tablet Take 1 Tablet [...]
--- OUTSIDE RECORDS SUMMARY | 2024-06-06 03:42 | XMS_ITS | Encounter Summary ---
Author Organization [facility] Address [address] [place] [address] Care Team Providers Care Automatic Profile Sander Operator Name Role Phone Unavailable Primary Care Provider [...]
--- OUTSIDE RECORDS SUMMARY | 2024-06-06 03:42 | XMS_ITS | Encounter Summary ---
Author Organization [facility] Address [address] [place] [address] Care Team Providers Care Bead Trimmer Name Role Phone Unavailable Primary Care Provider [...]
--- OUTSIDE RECORDS SUMMARY | 2024-06-06 03:42 | XMS_ITS | Encounter Summary ---
Author Organization [facility] Address [address] [place] [address] Care Team Providers Care Wind Farm Engineer Name Role Phone Unavailable Primary Care Provider [...]
--- OUTSIDE RECORDS SUMMARY | 2024-06-06 03:42 | XMS_ITS | Encounter Summary ---
Author Organization [facility] Address [address] [place] [address] Care Team Providers Care Vocal Performer Name Role Phone Unavailable Primary Care Provider [...]
== END 2024-05-30 05:00 | disposition left against medical advice (07) ==
DX: R68.83 Chills (without fever) (principal)
CPT/HCPCS: 99199

== ENCOUNTER 2025-05-14 04:59 | Emergency (ER) | payer MEDICARE, OTHER, SELFPAY ==
--- OUTSIDE RECORDS SUMMARY | 2025-05-13 14:00 | XMS_ITS | Encounter Summary ---
Author Organization [facility] Address [address] [facility] [address] [place] [address] Phone Care Team Providers Care Surveillance Supervisor Name Role Phone Herrera Rivera MD Primary Care Provider Reason for Visit * Consultation (Routine) - Authorized Specialty Diagnoses / Procedures Referred By Marco hammond Referred To Contact Urology Diagnoses Prostate cancer (HCC) Referral, Self [facility] (All Locations) Referral ID Status Reason Start Date Expiration Date Visits Requested Visits Authorized [id number] Authorized Specialty Services Required 05/22/2026 10 10 Encounter Details Date Type Department Care Team (Late st Contact Info) Description 05/13/2025 2:00 PM ASSOCIATE MERCHANT Office Visit [facility] - [facility] Medicine [facility] Advanced Medicine 11th [place] [address] [place] [address] Arturo Mayorga MD [address] [facility] [place] [address] Incomplete bladder emptying (Primary Dx) Social History Tobacco Use Types Packs/Day Years Used Date Smoking Tobacco: Never Assessed Personal Safety Answer Date Recorded Have you ever been in or are you currently in a harmful physical or emotional relationship or is someone making you feel afraid or unsafe? Denies 04/22/2025 Sex and Gender Information Value Date Recorded Sex Assigned at Not on file Legal Sex Male 6:36 AM ASSOCIATE MERCHANT Gender Identity Not on file Sexual Orientation Not on file documented as of this encounter Progress Notes * Arturo Mayorga MD - 05/13/2025 2:00 PM CST Arturo Mayorga M.D., M.S. Professor of Urologic Surgery, [facility] Specializing in Prostate and Kidney Cancer Jama Marquez 1955 Date of Visit: 05/13/2025 Prostate cancer - sought alternative therapies and is followed separately Urinary retention - options remove roy or keep it in, or intermitent cath On flomax Prostate cancer - we discussed that I would defer to his doctors - typically we would PSAs biopsiesto monitor - he gets PSAs every 6 weeks, it is below 6. That is monitored by Dr. Rivera. I told him to be followed by his existing doctors, as my main role is biopsy and prostatectomy, for which he isnt interested. We discussed monitoring, and he has sought alternative treatments in [place]. Pain in his coccyx and other areas - that has resolved - unclear what the cause - this can be followed by his primary. Urinary retention - id recommend Arett or Kody. We discussed that most local urologists can monitor his prostate and enlargement. I told him I typically would evaluate his prostate cancer with biopsies and his BPH with scopes but in general I defer this to the local and community urologists as he may need treatments or procedures which I do not perform. He decided to get out roy today with the understanding that he would have to go to urgent care orseek medical attention if unable to void in 6-8 hours, as he already is here in the afternoon and we would be closed in the clinic. He is going to seek a community urologist to follow him for his urinary retention. He is going to seek medical attention if unable to urinate. As far as his prostate cancer he already has a follow upplan, and he is not interested in routine treatments such as surgery or biopsy. He understands the risk of progression of cancer but he feels he is following his PSA adequately. I will release him from my care with the understanding that he would find a community urologists and I gave him our partners at [facility] and our nurse practitioners who also we would be able to follow him for urinary retention. Thanks for this referral. Arturo Mayorga MD CIATE MERCHANT documented in this encounter Plan of Treatment Not on file documented as of this encounter Visit Diagnoses Diagnosis Incomplete bladder emptying- Primary documented in this encounter Orders Outpatient Referral Count Last Ordered Date Fir st Ordered Date AMB REFERRAL TO UROLOGY 1 05/13/2025 documented in this encounter Care Teams Surveillance Supervisor Relationship Specialty Start Date End Date Herrera Rivera MD [address] [place] [address] PCP - General Family Medicine 04/22/25 documented as of this encounter
--- OUTSIDE RECORDS SUMMARY | 2025-05-13 14:00 | XMS_ITS | Encounter Summary ---
Author Organization [facility] Address [address] [facility] [address] [place] [address] Phone Care Team Providers Care Retail Training Manager Name Role Phone Herrera Rivera MD Primary Care Provider [phone] Reason for Visit * Consultation (Routine) - Authorized Specialty Diagnoses / Procedures Referred By Marco hammond Referred To Contact Urology Diagnoses Prostate cancer (HCC) Referral, Self [facility] (All Locations) Referral ID Status Reason Start Date Expiration Date Visits Requested Visits Authorized [id number] Authorized Specialty Services Required 05/22/2026 10 10 Encounter Details Date Type Department Care Team (Late st Contact Info) Description 05/13/2025 2:00 PM RECTIFYING ATTENDANT Office Visit [facility] - [facility] Medicine Urology [facility] Advanced Medicine 11th [place] [address] [place] [address] Arturo Mayorga MD [address] [facility] [place] [address] Incomplete bladder emptying (Primary Dx) Social History [...] on file Legal Sex Male 6:36 AM RECTIFYING ATTENDANT Gender Identity Not on file Sexual Orientation Not on file documented as of this encounter Progress Notes * Arturo Mayorga MD - 05/13/2025 2:00 PM CST Arturo Mayorga M.D., M.S. Professor of Urologic Surgery, [facility] Specializing in Prostate and Kidney Cancer [...] and he has sought alternative treatments in [place]. Pain in his coccyx and other areas [...] and I gave him our partners at [facility] and our nurse practitioners who also we would be able to follow him for urinary retention. Thanks for this referral. Arturo Mayorga MD IFYING ATTENDANT documented in this encounter Plan of Treatment Not on file documented as of this encounter Visit Diagnoses Diagnosis Incomplete bladder emptying- Primary documented in this encounter Orders Outpatient Referral Count Last Ordered Date Fir st Ordered Date AMB REFERRAL TO UROLOGY 1 05/13/2025 documented in this encounter Care Teams Retail Training Manager Relationship Specialty Start Date End Date Herrera Rivera MD [address] [place] [address] PCP - General Family Medicine 04/22/25 documented as of this encounter
--- OUTSIDE RECORDS SUMMARY | 2025-05-13 18:13 | XMS_ITS | Encounter Summary ---
Author Organization [facility] Address [address] [place] [address] Care Team Providers Care Experimental Technician Name Role Phone Herrera Rivera MD Primary Care Provider [phone] Encounter Details Date Type Department Care Team (Latest Contact Info) Description 05/13/2025 6:13 PM ZINC MINER BLASTING - 05/13/2025 11:59 PM ZINC MINER BLASTING Hospital Encounter [facility] [address] [place] [address] Arrived Discharge Disposition: Discharge to home or self care Social History Tobacco Use Types Packs/Day Years Used Date Smoking Tobacco: Never Assessed Personal Safety Answer Date Recorded Have you ever been in or are you currently in a harmful physical or emotional relationship or is someone making you feel afraid or unsafe? Denies 04/22/2025 Sex and Gender Information Value Date Recorded Sex Assigned at Not on file Legal Sex Male 6:36 AM ZINC MINER BLASTING Gender Identity Not on file Sexual Orientation Not on file documented as of this encounter Medications at Time of Discharge tamsulosin (FLOMAX) 0.4 mg extended release capsuleIndications :benign prostatic hyperplasia with lower urinary tract sx Take 1 capsule (0.4 mg total) by mouth daily 30 capsule 1 04/27/2025 documented as of this encounter Discharge Disposition Disposition Code Departure Means Destination Discharge to home or self care documented in this encounter Plan of Treatment Not on file documented as of this encounter Procedures Procedure Name Priority Date/Time Associated Diagnosis Comments MR BODY OUTSIDE REFERENCE Routine 05/13/2025 6:13 PM ZINC MINER BLASTING documented in this encounter Results * MR Body Outside Reference (05/13/2025 6:13 PM ZINC MINER BLASTING) Impressions [facility] - 05/13/2025 6:13 PM ZINC MINER BLASTING These images are for Reference purposes only and have not been reviewed by [facility] Radiology. There will be no report generated by a [facility] Radiologist. Narrative [facility] - 05/13/2025 6:13 PM ZINC MINER BLASTING EXAMINATION: Images For Reference Purposes Only us Kathy Guzman MD IMG MRI PROCEDURES Final Res ult [facility] documented in this encounter Visit Diagnoses Not on filedocumented in this encounter Care Teams Experimental Technician Relationship Specialty Start Date End Date Herrera Rivera MD [address] [place] [address] PCP - General Family Medicine 04/22/25 documented as of this encounter
--- OUTSIDE RECORDS SUMMARY | 2025-05-13 18:13 | XMS_ITS | Encounter Summary ---
Author Organization [facility] Healthcare Address [address] [place] [address] Care Team Providers Care Handstitching Machine Collar Feller Name Role Phone Herrera Rivera MD Primary Care Provider [phone] Encounter Details Date Type Department Care Team (Latest Contact Info) Description 05/13/2025 6:13 PM JANITORIAL SERVICES SUPERVISOR - 05/13/2025 11:59 PM JANITORIAL SERVICES SUPERVISOR Hospital Encounter [facility]) [address] [place] [address] Arrived Discharge Disposition: Discharge to home or [...] on file Legal Sex Male 6:36 AM JANITORIAL SERVICES SUPERVISOR Gender Identity Not on file Sexual Orientation [...] BODY OUTSIDE REFERENCE Routine 05/13/2025 6:13 PM JANITORIAL SERVICES SUPERVISOR documented in this encounter Results * MR Body Outside Reference (05/13/2025 6:13 PM JANITORIAL SERVICES SUPERVISOR) Impressions [facility] - 05/13/2025 6:13 PM JANITORIAL SERVICES SUPERVISOR These images are for Reference purposes only and have not been reviewed by [facility]. There will be no report generated by a [facility] Radiologist. Narrative [facility] - 05/13/2025 6:13 PM JANITORIAL SERVICES SUPERVISOR EXAMINATION: Images For Reference Purposes Only us Kathy Guzman MD IMG MRI PROCEDURES Final Res ult [facility] documented in this encounter Visit Diagnoses Not on filedocumented in this encounter Care Teams Handstitching Machine Collar Feller Relationship Specialty Start Date End Date Herrera Rivera MD [address] [place] [address] PCP - General Family Medicine 04/22/25 documented as of this encounter
--- OUTSIDE RECORDS SUMMARY | 2025-05-14 05:03 | XMS_ITS | Clinical Summary ---
Author Organization [facility] Address [address] [place] [address] Phone Care Team Providers Care Rn Baby Name Role Phone Herrera Rivera MD Primary Care Provider [phone] Allergies No known active allergies Medications tamsulosin (FLOMAX) 0.4 mg extended release capsuleIndicatio ns:benign prostatic hyperplasia with lower urinary tract sx Take 1 capsule (0.4 mg total) by mouth daily 30 capsule 1 5 Active tamsulosin (FLOMAX) 0.4 mg extended release capsule Take 1 capsule (0.4 mg total) by mouth daily 30 capsule 5 04/27/20 25 Discontinu ed(Reorder ) Active Problems No known active problems Encounters Date Type Department Care Team Description 05/13/2025 6:13 PM SUPERVISOR TRUST ACCOUNTS - 05/13/2025 11:59 PM SUPERVISOR TRUST ACCOUNTS Hospital Encounter [facility] ([facility]) [address] [place] [address] Arrived Discharge Disposition: Discharge to home or self care 05/13/2025 2:00 PM SUPERVISOR TRUST ACCOUNTS Office Visit [facility] ([facility]) - [facility] Medicine Urology [address] [place] [address] [place] [address] Arturo Mayorga MD Incomplete bladder emptying (Primary Dx) 05/13/2025 Orders Only [facility] Medicine Endocrinology Metabolism and Lipid [address] [place] [address] [place] [address] ProviderMarlene MD 04/27/2025 11:20 AM SUPERVISOR TRUST ACCOUNTS Office Visit [facility] Medicine Urology [address] [facility] Medical Office Building [address] [place] [address] Sangeetha Babb NP Urinary retention (Primary Dx); Prostate cancer (HCC) 04/22/2025 6:52 PM SUPERVISOR TRUST ACCOUNTS - 04/22/2025 11:13 PM SUPERVISOR TRUST ACCOUNTS Emergency [facility] Emergency Department [address] [place] [address] Venkata Henderson MD Urinary retention (Primary Dx) Discharge Disposition: Discharge to home or self care from Last 3 Months Social History Tobacco [...] on file Legal Sex Male 6:36 AM SUPERVISOR TRUST ACCOUNTS Gender Identity Not on file Sexual Orientation Not on file Last Filed Vital Signs Vital Sign Reading Time Taken Comments Blood Pressure 124/70 04/22/2025 11:00 PM SUPERVISOR TRUST ACCOUNTS Pulse 65 04/22/2025 11:00 PM SUPERVISOR TRUST ACCOUNTS Temperature 36.5 C (97.7 F) 04/22/2025 3:51 PM SUPERVISOR TRUST ACCOUNTS Respiratory Rate 18 04/22/2025 11:00 PM SUPERVISOR TRUST ACCOUNTS Oxygen Saturation 94% 04/22/2025 11:00 PM SUPERVISOR TRUST ACCOUNTS Inhaled Oxygen Concentration - - Weight 81.2 kg (179 lb) 04/22/2025 3:51 PM SUPERVISOR TRUST ACCOUNTS Height 185.4 cm (6' 1) 04/22/2025 3:51 PM SUPERVISOR TRUST ACCOUNTS Body Mass Index 23.62 04/22/2025 3:51 PM SUPERVISOR TRUST ACCOUNTS Plan of Treatment Health Maintenance Due Date Last Done Comments Colon Cancer Screening-Colonoscopy 1954 Depression Screening 1954 Fall Risk Assessment 1954 Hepatitis C Screening 1954 Hepatitis B Screening 1972 Pneumococcal vaccine 65+ (1 of 1 - PCV) 2004 Zoster Vaccine (1 of 2) 2004 Well Visit 65+ 12/03/2019 DTaP/Tdap/Td Vaccine (2 - Td or Tdap) 01/21/2025 01/21/2015, 04/23/1996, 09/22/1995 Influenza Vaccine (#1) 2025 04/29/1997 Abdominal Aortic Aneurysm (A AA) Screen Completed 04/22/2025 Procedures Procedure Name Priority Date/Time Associated Diagnosis Comments MR BODY OUTSIDE REFERENCE Routine 05/13/2025 6:13 [address] TRUST ACCOUNTS CT ABDOMEN PELVIS W CONTRAST ED 04/22/2025 9:27 PM SUPERVISOR TRUST ACCOUNTS URINALYSIS AND REFLEX TO MICROSCOPIC AND CULTURE STAT 04/22/2025 8:24 PM SUPERVISOR TRUST ACCOUNTS EGFR STAT 04/22/2025 7:49 PM SUPERVISOR TRUST ACCOUNTS DIFFERENTIAL AUTO STAT 04/22/2025 7:4 9 PM SUPERVISOR TRUST ACCOUNTS COMPREHENSIVE METABOLIC PANEL STAT 04/22/2025 7:49 PM SUPERVISOR TRUST ACCOUNTS CBC WITH AUTO DIFFERENTIAL STAT 04/22/2025 7:49 PM SUPERVISOR TRUST ACCOUNTS from Last 3 Months Results * MR Body Outside Reference (05/13/2025 6:13 PM SUPERVISOR TRUST ACCOUNTS) Impressions RAD_[facility] - 05/13/2025 6:13 PM SUPERVISOR TRUST ACCOUNTS These images are for Reference purposes only and have not been reviewed by [facility]. There will be no report generated by a [facility] Radiologist. Narrative RAD_PACS[facility] - 05/13/2025 6:13 PM SUPERVISOR TRUST ACCOUNTS EXAMINATION: Images For Reference Purposes Only us Kathy Guzman MD IMG MRI PROCEDURES Final Res ult [facility] * CT Abdomen Pelvis W Contrast (04/22/2025 9:27 PM SUPERVISOR TRUST ACCOUNTS) Anatomical Region Laterality Modality Body N/A Computed Tomogra phy 04/23/2025 12:5 1 AM SUPERVISOR TRUST ACCOUNTS Impressions 04/23/2025 12:51 AM SUPERVISOR TRUST ACCOUNTS 1. Markedly thick-walled, decompressed urinary bladder. 2. Increased sclerosis of the distal coccyx near the sacrococcygeal junction. Given the history of prostate cancer and elevating alkaline phosphatase, consider correlating with bone scan, PSMA PET/CT or MRI as outpatient. No evidence of displaced coccygeal fracture. Recommend follow up of the Incidental coccyx lesion Additional Imaging less than 1 month with further imaging as above. ADDENDUM - This addendum is being placed on the report for a non-time dependent finding on a patient who was discharged from the emergency room (1c). Indeterminate sclerosis along the lower sacrum, particularly centrally involving the right right aspect, which warrants further evaluation given the history of prostate cancer and elevated alkaline phosphatase. Attempts will be made to contact the patient or his/her primary doctor during regular business hours Friday-Friday. An addendum will be issued to confirm contact has been made to communicate this finding. Electronically signed by: Frankie Blackwell M.D. Narrative 04/23/2025 12:51 AM SUPERVISOR TRUST ACCOUNTS EXAMINATION: Computed tomography of the abdomen and pelvis with intravenous contrast HISTORY: Prostate cancer with worsening coccyx pain and urinary retention TECHNIQUE: Transaxial computed tomographic images of the abdomen and pelvis were obtained with intravenous contrast according to the standard protocol after the administration of 100 mL Opti-Ray 350 intravenous contrast. COMPARISON: None FINDINGS: Limited evaluation of the lower thorax demonstrates mild dependent atelectasis. No pleural or pericardial effusion. No suspicious hepatic lesion. Normal gallbladder, spleen, adrenal glands, and pancreas. Prominent bilateral extrarenal pelvis and ureters. No overt calyceal dilatation. No nephrolithiasis. Urinary bladder is decompressed by Bruce catheter and markedly thick-walled. No bowel obstruction. Normal appendix. Stool throughout the colon. No ascites or pneumoperitoneum. No suspicious adenopathy. Tortuous abdominal aorta, which is nonaneurysmal. Minimal atherosclerotic iliac branches. There is ill-defined sclerosis of the distal sacrum near the sacrococcygeal junction, especially along the right and central aspect. No evidence of acute fracture. Schmorl's nodes in the superior endplate of L4 and superior to inferior endplate of L3. Procedure Note Frankie Blackwell MD - 04/23/2025 EXAMINATION: Computed tomography of the abdomen and pelvis with intravenous contrast HISTORY: Prostate cancer with worsening coccyx pain and urinary retention TECHNIQUE: Transaxial computed tomographic images of the abdomen and pelvis were obtained with intravenous contrast according to the standard protocol after the administration of 100 mL Opti-Ray 350 intravenous contrast. COMPARISON: None FINDINGS: Limited evaluation of the lower thorax demonstrates mild dependent atelectasis. No pleural or pericardial effusion. No suspicious hepatic lesion. Normal gallbladder, spleen, adrenal glands, and pancreas. Prominent bilateral extrarenal pelvis and ureters. No overt calyceal dilatation. No nephrolithiasis. Urinary bladder is decompressed by Bruce catheter and markedly thick-walled. No bowel obstruction. Normal appendix. Stool throughout the colon. No ascites or pneumoperitoneum. No suspicious adenopathy. Tortuous abdominal aorta, which is nonaneurysmal. Minimal atherosclerotic iliac branches. There is ill-defined sclerosis of the distal sacrum near the sacrococcygeal junction, especially along the right and central aspect. No evidence of acute fracture. Schmorl's nodes in the superior endplate of L4 and superior to inferior endplate of L3. IMPRESSION: 1. Markedly thick-walled, decompressed urinary bladder. 2. Increased sclerosis of the distal coccyx near the sacrococcygeal junction. Given the history of prostate cancer and elevating alkaline phosphatase, consider correlating with bone scan, PSMA PET/CT or MRI as outpatient. No evidence of displaced coccygeal fracture. Recommend follow up of the Incidental coccyx lesion Additional Imaging less than 1 month with further imaging as above. ADDENDUM - This addendum is being placed on the report for a non-time dependent finding on a patient who was discharged from the emergency room (1c). Indeterminate sclerosis along the lower sacrum, particularly centrally involving the right right aspect, which warrants further evaluation given the history of prostate cancer and elevated alkaline phosphatase. Attempts will be made to contact the patient or his/her primary doctor during regular business hours Friday-Friday. An addendum will be issued to confirm contact has been made to communicate this finding. Electronically signed by: Frankie Blackwell M.D. us Venkata Henderson MD IMG CT PROCEDURES Final Result * Urinalysis reflex to microscopic and culture Urine (04/22/2025 8:24 PM SUPERVISOR TRUST ACCOUNTS) Color, ur Straw Yellow Clarity, ur Clear Clear [facility] Specific gravity, ur 1.007 1.003 - 1.030 [facility] pH, urine 7.0 [facility] Comment: Interpretive Data U rine pH is affected by diet, medications, systemic acid-base disturbances, and renal tubular function. pH may affect urinary stone formation. For example, urine pH below 6.0 may help reduce the tendency for calcium phosphate stones and pH greater than 6.0 may reduce the tendency for uric acid stone formation. Source: [facility] [employer]World Current Interpretive Data was last revised on 2017 Protein, ur ql Negative Negative [facility] Glucose, ur ql Negative Negative [facility] Ketones, ur Negative Negative [facility] Bilirubin, ur Negative Negative [facility] Blood, ur Negative Negative [facility] Urobilinogen, ur <2.0 <2.0 mg/dL [facility] Nitrite, ur Negative Negative [facility] Leukocyte esterase, ur Negative Negative [facility] UA reflex comment Reflex conditions for microscopic UA and culture not met. [facility] Urine 04/22/2025 8:24 PM SUPERVISOR TRUST ACCOUNTS 04/22/2025 8:26 PM SUPERVISOR TRUST ACCOUNTS Venkata Henderson MD LAB MICROBIOLOGY - GENE [facility] ORDERABLES Final Result [facility] [id number] [facility]. [place] [address] * eGFR (04/22/2025 7:49 PM SUPERVISOR TRUST ACCOUNTS) eGFR 75 >=60 mL/min/1. 73 m2 Comment: Interpretive Data Reference Interval Normal >/= 90 mL/min/1.73m2 Mildly decreased* 60 - 89 mL/min/1.73m2 Mildly to moderately decreased 45 - 59 mL/min/1.73m2 Moderately to severely decreased 30 - 44 mL/min/1.73m2 Severely decreased 15 - 29 mL/min/1.73m2 Kidney Failure < 15 mL/min/1.73m2 *Relative to young adult level Estimated glomerular filtration rate is determined by the 2020 CKD-EPI equation recommended by the National Kidney Foundation (A Unifying Approach to GFR Estimation: Recommendations of the NKF-ASK Task Force on Reassessing the Inclusion of Race in Diagnosing Kidney Disease, JASN 202). The CKD-EPI equation should not be used for patients with unstable renal function and has not been validated in children and those over 70. Current interpretive data was last reviewed 2021. Blood 04/22/2025 7:49 PM SUPERVISOR TRUST ACCOUNTS 04/22/2025 7:57 PM SUPERVISOR TRUST ACCOUNTS us Venkata Henderson MD LAB BLOOD ORDERABLES Fi nal Result [facility] [id number] [facility]. [place] [address] * (ABNORMAL) Differential, auto (04/22/2025 7:49 PM SUPERVISOR TRUST ACCOUNTS) Neutrophil abs 7.40(H) 1.50 - 6.50 K/cumm Imm gran abs 0.03 0.00 - 0.10 K/cumm [facility] Lymphocyte abs 1.36 0.80 - 3.30 K/cumm [facility] Monocyte abs 0.77 0.20 - 0.80 K/cumm [facility] Eosinophil abs 0.06 0.00 - 0.50 K/cumm [facility] Basophil abs 0.04 0.00 - 0.10 K/cumm [facility] Neutrophil pct 76.6 % [facility] Comment: Interpretive Data Percent cell count reference ranges are not reported, since discordance with absolute values may lead to misinterpretation of CBC data. Current Interpretive Data was last revised on 2017. Imm gran pct 0.3 % [facility] Comment: Interpretive Data Percent cell count reference ranges are not reported, since discordance with absolute values may lead to misinterpretation of CBC data. Current Interpretive Data was last revised on 2017. Lymphocyte pct 14.1 % [facility] Comment: Interpretive Data Percent cell count reference ranges are not reported, since discordance with absolute values may lead to misinterpretation of CBC data. Current Interpretive Data was last revised on 2017. Monocyte pct 8.0 % [facility] Comment: Interpretive Data Percent cell count reference ranges are not reported, since discordance with absolute values may lead to misinterpretation of CBC data. Current Interpretive Data was last revised on 2017. Eosinophil pct 0.6 % [facility] Comment: Interpretive Data Percent cell count reference ranges are not reported, since discordance with absolute values may lead to misinterpretation of CBC data. Current Interpretive Data was last revised on 2017. Basophil pct 0.4 % [facility] Comment: Interpretive Data Percent cell count reference ranges are not reported, since discordance with absolute values may lead to misinterpretation of CBC data. Current Interpretive Data was last revised on 2017. Blood 04/22/2025 7:49 PM SUPERVISOR TRUST ACCOUNTS 04/22/2025 7:57 PM SUPERVISOR TRUST ACCOUNTS us Venkata Henderson MD LAB BLOOD ORDERABLES Fi nal Result [facility] [id number] [facility]. [place] [address] * (ABNORMAL) CBC with auto differential (04/22/2025 7:49 PM SUPERVISOR TRUST ACCOUNTS) WBC 9.66 3.80 - 9.90 K/cumm Hgb 12.6(L) 13.0 - 17.5 g/dL [facility] Hct 37.0(L) 38.9 - 50.3 % [facility] Plt 260 150 - 400 K/cumm [facility] MPV 10.3 9.1 - 12.3 fL [facility] RBC 4.24(L) 4.30 - 5.80 M/cumm [facility] MCV 87.3 81.3 - 96.4 fL [facility] MCH 29.7 27.1 - 33.3 pg [facility] MCHC 34.1 32.3 - 35.7 g/dL [facility] RDW CV 12.0 11.1 - 14.9 % [facility] RDW SD 38.5 35.7 - 48.1 fL [facility] NRBC abs 0.00 0.00 - 0.01 K/cumm [facility] Blood 04/22/2025 7:49 PM SUPERVISOR TRUST ACCOUNTS 04/22/2025 7:57 PM SUPERVISOR TRUST ACCOUNTS us Venkata Henderson MD LAB BLOOD ORDERABLES Fi nal Result [facility] [id number] [facility]. [place] [address] * (ABNORMAL) Comprehensive metabolic panel (04/22/2025 7:49 PM SUPERVISOR TRUST ACCOUNTS) Sodium 138 135 - 145 mmol/L Potassium, pl 3.9 3.3 - 4.9 mmol/L [facility] Chloride 101 97 - 110 mmol/L [facility] CO2 26 22 - 32 mmol/L [facility] Anion gap 11 2 - 15 mmol/L [facility] BUN 11 6 - 25 mg/dL [facility] Creatinine 1.07 0.80 - 1.30 mg/dL [facility] Glucose 95 70 - 199 mg/dL [facility] Comment: Interpretive Data Fasting glucose >/= 126 mg/dl is diagnostic for diabetes. Fasting is defined as no caloric intake for at least 8 hours. Fasting glucose between 100 mg/dl to 125 mg/dl is diagnostic of prediabetes. In a patient with classic symptoms of hyperglycemia or hyperglycemic crisis, a random glucose >/= 200 mg/dl is diagnostic for diabetes. In the absence of unequivocal hyperglycemia, results should be confirmed by repeat testing. The classification and Diagnosis of Diabetes Diabetes Care 2021; 46: S19-S40. Calcium 9.2 8.5 - 10.3 mg/dL [facility] Bilirubin, total 1.0 0.1 - 1.2 mg/dL [facility] Protein, pl 6.4(L) 6.5 - 8.5 g/dL [facility] Albumin 4.3 3.5 - 5.0 g/dL [facility] Alk phos 338(H) 40 - 130 Units/L [facility] ALT 21 7 - 55 Units/L [facility] AST 30 10 - 50 Units/L [facility] Blood 04/22/2025 7:49 PM SUPERVISOR TRUST ACCOUNTS 04/22/2025 7:57 PM SUPERVISOR TRUST ACCOUNTS us Vnekata Henderson MD LAB BLOOD ORDERABLES Fi nal Result [facility] [id number] [facility]. [place] [address] from Last 3 Months Insurance MEDICARE [facility] MEDICARE [facility] Care Teams Rn Baby Relationship Specialty Start Date End Date Herrera Rivera MD [facility] [place] [address] PCP - General Family Medicine 04/22/25
--- OUTSIDE RECORDS SUMMARY | 2025-05-14 05:03 | XMS_ITS | Encounter Summary ---
Author Organization [facility] Address [address] [place] [address] Phone Care Team Providers Care Technology Advisor Name Role Phone Herrera Rivera MD Primary Care Provider [phone] Reason for Referral * MRI/CAT/PET Scan (Routine) - Closed Specialty Diagnoses / Procedures Referred By Contac t Referred To Contact Radiology Procedures MRI Pelvis W WO Contrast Marlene Johnson MD [address] [place] [address] Phone: tel: Referral ID Status Reason Start Date Expiration Date Visits Re quested Visits Authorized [id number] Closed 05/13/2025 06/12/2026 1 1 E EDITOR Encounter Details Date Type Department Care Team (Late st Contact Info) Description 05/13/2025 Orders Only [facility] Medicine Endocrinology Metabolism and Lipid [address] [facility] [address] [place] [address] [place] [id number] Marlene Johnson MD [address] [place] [address] Social History Tobacco Use Types Packs/Day Years Used Date Smoking Tobacco: Never Assessed Personal Safety Answer Date Recorded Have you ever been in or are you currently in a harmful physical or emotional relationship or is someone making you feel afraid or unsafe? Denies 04/22/2025 Sex and Gender Information Value Date Recorded Sex Assigned at Not on file Legal Sex Male 6:36 AM IMAGE EDITOR Gender Identity Not on file Sexual Orientation Not on file documented as of this encounter Plan of Treatment Not on file documented as of this encounter Procedures Procedure Name Priority Date/Time Associated Diagnosis Comments MRI PELVIS W WO CONTRAST Schedule Routine, Read Routine (OP Routine) 06/11/2024 4:11 PM IMAGE EDITOR documented in this encounter Results * MRI Pelvis W WO Contrast (06/11/2024 4:11 PM IMAGE EDITOR) Anatomical Region Laterality Modality Pelvis N/A Magnetic Resonan ce Historical Provider MD [facility] MRI PROCEDURES Final Result documented in this encounter Visit Diagnoses Not on filedocumented in this encounter Care Teams Technology Advisor Relationship Specialty Start Date End Date Herrera Rivera MD [address] [place] [address] PCP - General Family Medicine 04/22/25 documented as of this encounter
--- OUTSIDE RECORDS SUMMARY | 2025-05-14 05:03 | XMS_ITS | Clinical Summary ---
Author Organization [facility] Address [address] [place] [address] Care Team Providers Care Sustainable Design Coordinator Name Role Phone Unavailable Primary Care Provider Unavailabl e Medications thyroid, pork, (LIFE SKILLS COORDINATOR VOLUNTEER Thyroid) 60 mg tablet Take 1 Tablet (60 mg) by mouth once daily in the evening 90 Tablet 1 03/08/2024 5:06 PM CDT 4 Active tamsulosin (FLOMAX) 0.4 mg capsule Take 1 Capsule (0.4 mg) by mouth daily. 5 Capsule 03/12/2024 7:21 PM CDT 4 Active mupirocin (BACTROBAN) 2 % Ointment APPLY TO AFFECTED AREA TWICE DAILY NEEDED. 22 Gram 4 Active tamsulosin (FLOMAX) 0.4 mg capsule Take 1 capsule (0.4 mg total) by mouth daily 30 Capsule 1 5 Active tamsulosin (FLOMAX) 0.4 mg capsule Take 1 Capsule (0.4 mg) by mouth daily. 30 Capsule 04/24/2025 12:17 PM TUMBLER PLATER 5 04/27/20 25 Discontinu ed(Reorder ) Encounters Date Type Department Care Team Description 03/29/2025 External Device Data [facility] Provider, Abstract 03/15/2025 External Device Data [facility] Provider, Abstract 02/23/2025 External Device Data [facility] Provider, Abstract 02/22/2025 External Device Data [facility] Provider, Abstract 02/22/2025 External Device Data [facility] Provider, Abstract from Last 3 Months Social History Tobacco Use Types Packs/Day Years Used Date Smoking Tobacco: Never Assessed Sex and Gender Information Value Date Recorded Sex Assigned at Not on file Legal Sex Male 9:40 AM CDT Gender Identity Not on file Sexual Orientation Not on file Plan of Treatment Health Maintenance Due Date Last Done Comments DTAP/TDAP/TD VACCINES (1 - Tdap) 1973 COLORECTAL SCREENING 12/03/1999 Colorectal Cancer Screening 12/03/1999 FIT-DNA Q 3 years 12/03/1999 FIT/FOBT Q 1 year 12/03/1999 Flex Sig/CT Colonography Q 5 years 12/03/1999 PNEUMOCOCCAL VACCINE 50+ YEARS (1 of 1 - PCV) 12/03/19 05 ZOSTER VACCINE (1 of 2) 2004 INFLUENZA VACCINE (#1) 2025 RSV VACCINE (60+ or ) (1 - 1-dose 75+ series) 2029 Insurance RX [employer]
--- OUTSIDE RECORDS SUMMARY | 2025-05-14 05:03 | XMS_ITS | Clinical Summary ---
Author Organization [facility] Address [address] [place] [address] Care Team Providers Care Master Automotive Technician Name Role Phone Josesito Alfred MD Primary Care Provider [phone] Social History Tobacco Use Types Packs/Day Years [...] Td Vaccines ( 1 - Tdap) 1973 Pneumococcal Vaccine: 50+ Ye ars (1 of 1 - PCV) 2004 Zoster Vaccines (1 of 2) 2004 COVID-19 Vaccine ( - 2024-2 6 season) 2025 Influenza Adult (#1) 2025 RSV Immunization or 60+ Years (1 - 1-dose 75+ series) 2029 Hepatitis A Vaccines Aged Out No long er eligible based on patient's age to complete this topic Meningococcal B Vaccine Aged Out No l onger eligible based on patient's age to complete this topic Meningococcal Vaccine Aged Out No mp carol eligible based on patient's age to complete this topic RSV Immunizations Under 20 Months Aged Out No longer eligible based on patient's age to complete this topic Insurance [employer] LIABILITY on file Care Teams Master Automotive Technician Relationship Specialty Start Date End Date Josesito Alfred MD [address] [address] PCP - General FAMILY PRACTICE 02/02/18
[2025-05-14 05:13] VITALS: BP 138/77; PULSE 62; RESP 18; TEMP 36.8; O2SAT 96
[2025-05-14 05:22] VITALS: BP 138/77; PULSE 62; RESP 14; O2SAT 97
[2025-05-14 05:31] VITALS: BP 124/78; O2SAT 97
[2025-05-14 05:46] VITALS: BP 130/80; PULSE 64; RESP 13; O2SAT 95
[2025-05-14 06:02] VITALS: BP 107/95; O2SAT 98
--- NOTE | 2025-05-14 06:03 | ED.MALEGU ---
HPI - Male Genitourinary General Chief complaint: Urogenital-Male Stated complaint: decreased UO, bladder pain, recent cath Time Seen by Provider: 05/14/25 05:39 Source: patient Mode of arrival: ambulatory Limitations: no limitations History of Present Illness HPI Narrative: Patient is a 69-year-old male presents to the emergency department complaining of urinary retention. Patient reports he had a Bruce catheter in place for the past 2 weeks and was having urinary retention which was my was placed and has no prostate enlargement of prostate cancer when he went to the urologist yesterday around 3:00 p.m. the to cut the catheter and he was monitoring his urine output was having some urine output the numbness that there was a much and started developed some suprapubic fullness throughout the night and came in for further evaluation. Patient denies any fevers, nausea, vomiting, recent injuries. Patient denies any recent antibiotic use. Related Data Home Medications ?Medication ?Instructions ?Recorded ?Confirmed ?Last Taken ?Type No Home Medications 05/27/19 08/05/22 Unknown History Allergies Allergy/AdvReac Type Severity Reaction Status Date / Time No Known Allergies Allergy Unknown Verified 05/14/25 05:02 Review of Systems Review of Systems: A 10 system review of systems was completed on the patient and is negative except for what is stated in the HPI. Nursing and ancillary documentation was reviewed. [facility] Past Medical History Medical History Acute pain of right knee BMI 26.0-26.9,adult Cervical pain (neck) Chronic bilateral low back pain without sciatica Dietary counseling and surveillance (01/23/18) Other chronic pain Family History Family History Father Acute myocardial infarction Cancer Mother Acute myocardial infarction Cancer Sibling No problems noted. Social History Social History Smoking status: Never smoker Second hand tobacco smoke exposure: Yes Alcohol intake: current Substance use: never Substance use type: does not use Living arrangements: with family Occupation/Education: retired Additional occupation/education comments: [employer] Gender identity (if verbalized by the patient): Male Exam Narrative: CONST: Well nourished. HENMT: Head is normocephalic and atraumatic. EYES: No scleral icterus. NECK: No meningeal signs. RESP: Able to speak in full sentences. Normal respiratory effort. CARDIO: Regular rate. GI: Suprapubic fullness.. SKIN: No rashes or lesions noted on exposed skin. NEURO: Oriented x3. Moves all extremities. EXTREM/MSK/BACK: No pedal edema. PSYCH: Normal affect. Course Vital Signs Vital signs: Vital Signs Temperature 98.3 F 05/14/25 05:13 Pulse Rate 62 05/14/25 05:13 Respiratory Rate 18 05/14/25 05:13 Blood Pressure 138/77 05/14/25 05:13 Pulse Oximetry 96 05/14/25 05:13 Oxygen Delivery Room Air 05/14/25 05:13 Temperature 98.3 F 05/14/25 05:13 Pulse Rate 64 05/14/25 05:46 Respiratory Rate 13 05/14/25 05:46 Blood Pressure 107/95 H 05/14/25 06:02 Pulse Oximetry 98 05/14/25 06:02 Oxygen Delivery Room Air 05/14/25 05:13 [facility] Narrative Medical decision making narrative: Patient presents with the above complaint. Initial vitals are remarkable for no significant abnormalities. Physical examination as noted above. Plan discussed: Bladder scan revealed a large amount of urine in the bladder, Bruce catheter placed and a large amount of urine obtained patient feeling a lot better. Urinalysis sent. Patient will be provided with Urology follow-up. Patient was reassessed at the bedside. No changes in physical exam. Patient is in no acute distress. The patient has remained stable throughout the entire ED visit. Patient provided with a leg bag. Counseled patient regarding diagnostic results and potential diagnosis. Anticipatory guidance provided. Patient instructed to follow up with Urology within 1 week. Patient counseled on: false reassurance from an emergency department evaluation; no current evidence of a medical emergency; return immediately for any new, recurrent, worsening, concerning, or refractory symptoms. Additional verbal and printed discharge instructions were given and discussed with the patient. Patient verbally acknowledges understanding of condition and discharge instructions. All questions were answered to the patient's satisfaction. Patient is in agreement with the plan of care. The patient is stable for discharge and was discharged without incident. Differential Diagnosis Differential Diagnosis: Urinary retention, UTI. Lab Data [facility] Lab Attestation statement: I personally reviewed the patient's lab results. Lab results narrative: Urinalysis reveals 3+ leukocyte esterase, greater than 100 wbc's, no bacteria seen. Labs: Lab Results 05/14/25 Range/Units 06:13 Urine Color Yellow (Yellow) Urine Appearance Clear (Clear) Urine pH 7.5 (5.0-9.0) Ur Specific Apex 1.006 (1.001-1.035) Urine Protein Negative (Negative) mg/dL Urine Glucose (UA) Negative (Negative) mg/dL Urine Ketones Negative (Negative) mg/dL Ur Blood (Man) Negative (Negative) Urine Nitrate Negative (Negative) Urine Bilirubin Negative (Negative) Urine Urobilinogen 0.2 (<2.0) mg/dL Leukocyte Esterase Rfl 3+ H (Negative) [place]/UL Urine RBC 0-2 (0-2) /hpf Urine WBC >100 H (0-3) /hpf Ur Squamous Epith Cells None seen (Few) /hpf Urine Bacteria None seen /hpf Urine Casts 0-2 Discharge Plan Discharge Clinical Impression: Acute urinary retention Patient Disposition: Home Condition: Stable Instructions: Antibiotic Form, Urinary Retention in Men (ED), Bruce Catheter Placement and Care (ED) Additional Instructions: Follow-up with Urology within the next 1 week, rest and stay well hydrated, return immediately to the emergency department for any new or concerning symptoms especially fever, nausea vomiting, new or concerning abdominal pain, lack of urine output, or any emergent concerns for life, limb, eyesight. Patient Language: Zambian Prescriptions: No Action No Home Medications Follow-up/Referrals: Ronnie Palm MD [Physician, Urology] - 1 Week UNKNOWN,DOCTOR [Non-Staff] Time of Disposition: 06:43
--- OUTSIDE RECORDS SUMMARY | 2025-05-14 06:06 | XMS_ITS | Clinical Summary ---
Author Organization [facility] Address [address] [place] [address] Care Team Providers Care Ornamental Metal Worker Helper Name Role Phone Josesito Alfred MD Primary Care Provider [phone] Social History Tobacco Use Types Packs/Day Years [...] [employer] LIABILITY on file Care Teams Ornamental Metal Worker Helper Relationship Specialty Start Date End Date Josesito Alfred MD [address] [address] PCP - General FAMILY PRACTICE 02/02/18
--- OUTSIDE RECORDS SUMMARY | 2025-05-14 06:06 | XMS_ITS | Clinical Summary ---
Author Organization [facility] [place] [facility] Address [address] [place] [address] Phone Care Team Providers Care Looper Fixer Name Role Phone Herrera Rivera MD Primary Care Provider [phone] Allergies No known active allergies Medications tamsulosin [...] Department Care Team Description 05/13/2025 6:13 PM DAY CARE SUPERVISOR - 05/13/2025 11:59 PM DAY CARE SUPERVISOR Hospital Encounter [facility] ([facility]) [address] [place] [address] Arrived Discharge Disposition: Discharge to home or self care 05/13/2025 2:00 PM DAY CARE SUPERVISOR Office Visit [facility] [place] [facility] ([facility]) - [facility] Medicine Urology [address] [place] [address] [place] [address] Arturo Mayorga MD Incomplete bladder emptying (Primary Dx) 05/13/2025 Orders Only [facility] Medicine Endocrinology Metabolism and Lipid [address] [place] [address] [place] [address] ProviderMarlene MD 04/27/2025 11:20 AM DAY CARE SUPERVISOR Office Visit [facility] Medicine Urology [address] [facility] [facility] [address] [place] [address] Sangeetha Babb NP Urinary retention (Primary Dx); Prostate cancer (HCC) 04/22/2025 6:52 PM DAY CARE SUPERVISOR - 04/22/2025 11:13 PM DAY CARE SUPERVISOR Emergency [facility] Emergency Department [address] [place] [address] Venkata Henderson MD Urinary retention (Primary Dx) [...] on file Legal Sex Male 6:36 AM DAY CARE SUPERVISOR Gender Identity Not on file Sexual Orientation Not on file Last Filed Vital Signs Vital Sign Reading Time Taken Comments Blood Pressure 124/70 04/22/2025 11:00 PM DAY CARE SUPERVISOR Pulse 65 04/22/2025 11:00 PM DAY CARE SUPERVISOR Temperature 36.5 C (97.7 F) 04/22/2025 3:51 PM DAY CARE SUPERVISOR Respiratory Rate 18 04/22/2025 11:00 PM DAY CARE SUPERVISOR Oxygen Saturation 94% 04/22/2025 11:00 PM DAY CARE SUPERVISOR Inhaled Oxygen Concentration - - Weight 81.2 kg (179 lb) 04/22/2025 3:51 PM DAY CARE SUPERVISOR Height 185.4 cm (6' 1) 04/22/2025 3:51 PM DAY CARE SUPERVISOR Body Mass Index 23.62 04/22/2025 3:51 PM DAY CARE SUPERVISOR Plan of Treatment Health Maintenance Due Date [...] BODY OUTSIDE REFERENCE Routine 05/13/2025 6:13 [address] ABDOMEN PELVIS W CONTRAST ED 04/22/2025 9:27 PM DAY CARE SUPERVISOR URINALYSIS AND REFLEX TO MICROSCOPIC AND CULTURE STAT 04/22/2025 8:24 PM DAY CARE SUPERVISOR EGFR STAT 04/22/2025 7:49 PM DAY CARE SUPERVISOR DIFFERENTIAL AUTO STAT 04/22/2025 7:4 9 PM DAY CARE SUPERVISOR COMPREHENSIVE METABOLIC PANEL STAT 04/22/2025 7:49 PM DAY CARE SUPERVISOR CBC WITH AUTO DIFFERENTIAL STAT 04/22/2025 7:49 PM DAY CARE SUPERVISOR from Last 3 Months Results * MR Body Outside Reference (05/13/2025 6:13 PM DAY CARE SUPERVISOR) Impressions RAD_PACS_[facility] - 05/13/2025 6:13 PM DAY CARE SUPERVISOR These images are for Reference purposes only and have not been reviewed by [facility] Radiology. There will be no report generated by a [facility] Radiologist. Narrative RAD_PACS_[facility]J - 05/13/2025 6:13 PM DAY CARE SUPERVISOR EXAMINATION: Images For Reference Purposes Only us Kathy Guzman MD IMG MRI PROCEDURES Final Res ult RAD_PACS_[facility] * CT Abdomen Pelvis W Contrast (04/22/2025 9:27 PM DAY CARE SUPERVISOR) Anatomical Region Laterality Modality Body N/A Computed Tomogra phy 04/23/2025 12:5 1 AM DAY CARE SUPERVISOR Impressions 04/23/2025 12:51 AM DAY CARE SUPERVISOR 1. Markedly thick-walled, decompressed urinary bladder. 2. [...] Frankie Blackwell M.D. Narrative 04/23/2025 12:51 AM DAY CARE SUPERVISOR EXAMINATION: Computed tomography of the abdomen and [...] microscopic and culture Urine (04/22/2025 8:24 PM DAY CARE SUPERVISOR) Color, ur Straw Yellow Clarity, ur Clear [...] tendency for uric acid stone formation. Source: [facility] bubl Current Interpretive Data was last revised on [...] met. [facility] Urine 04/22/2025 8:24 PM DAY CARE SUPERVISOR 04/22/2025 8:26 PM DAY CARE SUPERVISOR Venkata Henderson MD LAB MICROBIOLOGY - GENE [facility] ORDERABLES Final Result [facility] [address] [facility]. Department [place] [address] * eGFR (04/22/2025 7:49 PM DAY CARE SUPERVISOR) eGFR 75 >=60 mL/min/1. 73 m2 Comment: [...] last reviewed 2021. Blood 04/22/2025 7:49 PM DAY CARE SUPERVISOR 04/22/2025 7:57 PM DAY CARE SUPERVISOR us Venkata Henderson MD LAB BLOOD ORDERABLES Fi nal Result [facility] [address] [facility]. Department [place] [address] * (ABNORMAL) Differential, auto (04/22/2025 7:49 PM DAY CARE SUPERVISOR) Neutrophil abs 7.40(H) 1.50 - 6.50 K/cumm [...] on 2017. Lymphocyte pct 14.1 % [facility] Comment: Interpretive Data Percent cell count reference ranges are not reported, since discordance with absolute values may lead to misinterpretation of CBC data. Current Interpretive Data was last revised on 2017. Monocyte pct 8.0 % [facility] Comment: Interpretive Data Percent cell count reference ranges are not reported, since discordance with absolute values may lead to misinterpretation of CBC data. Current Interpretive Data was last revised on 2017. Eosinophil pct 0.6 % [facility] Comment: Interpretive Data Percent cell count reference ranges are not reported, since discordance with absolute values may lead to misinterpretation of CBC data. Current Interpretive Data was last revised on 2017. Basophil pct 0.4 % [facility] Comment: Interpretive Data Percent cell count reference ranges are not reported, since discordance with absolute values may lead to misinterpretation of CBC data. Current Interpretive Data was last revised on 2017. Blood 04/22/2025 7:49 PM DAY CARE SUPERVISOR 04/22/2025 7:57 PM DAY CARE SUPERVISOR us Venkata Henderson MD LAB BLOOD ORDERABLES Fi nal Result [facility] [address] [facility]. Department [place] [address] * (ABNORMAL) CBC with auto differential (04/22/2025 7:49 PM DAY CARE SUPERVISOR) WBC 9.66 3.80 - 9.90 K/cumm Hgb 12.6(L) 13.0 - 17.5 g/dL [facility] Hct 37.0(L) 38.9 - 50.3 % [facility] Plt 260 150 - 400 K/cumm [facility] MPV 10.3 9.1 - 12.3 fL [facility] RBC 4.24(L) 4.30 - 5.80 M/cumm [facility] MCV 87.3 81.3 - 96.4 fL [facility] MCH 29.7 27.1 - 33.3 pg [facility] MCHC 34.1 32.3 - 35.7 g/dL [facility] RDW CV 12.0 11.1 - 14.9 % [facility] RDW SD 38.5 35.7 - 48.1 fL [facility] NRBC abs 0.00 0.00 - 0.01 K/cumm [facility] Blood 04/22/2025 7:49 PM DAY CARE SUPERVISOR 04/22/2025 7:57 PM DAY CARE SUPERVISOR us Venkata Henderson MD LAB BLOOD ORDERABLES Fi nal Result [facility] [address] [facility]. [place] [address] * (ABNORMAL) Comprehensive metabolic panel (04/22/2025 7:49 PM DAY CARE SUPERVISOR) Sodium 138 135 - 145 mmol/L Potassium, [...] Units/L [facility] Blood 04/22/2025 7:49 PM DAY CARE SUPERVISOR 04/22/2025 7:57 PM DAY CARE SUPERVISOR us Venkata Henderson MD LAB BLOOD ORDERABLES Fi nal Result [facility] [address] [facility]. Department [place] [address] from Last 3 Months Insurance MEDICARE [facility] MEDICARE [facility] Care Teams Looper Fixer Relationship Specialty Start Date End Date Herrear Rivera MD [facility] [place] [address] PCP - General Family Medicine 04/22/25
--- OUTSIDE RECORDS SUMMARY | 2025-05-14 06:06 | XMS_ITS | Clinical Summary ---
Author Organization [facility] Address [address] [place] [address] Care Team Providers Care Erp Programmer Name Role Phone Unavailable Primary Care Provider Unavailabl e Medications thyroid, pork, (VICE PRESIDENT QUALITY ASSURANCE Thyroid) 60 mg tablet Take 1 Tablet [...] mouth daily. 30 Capsule 04/24/2025 12:17 PM DENTAL INSTRUCTOR 5 04/27/20 25 Discontinu ed(Reorder ) Encounters [...]
--- OUTSIDE RECORDS SUMMARY | 2025-05-14 06:06 | XMS_ITS | Encounter Summary ---
Author Organization [facility] Address [address] [place] [address] Phone Care Team Providers Care Dice Person Name Role Phone Herrera Rivera MD Primary Care Provider [phone] Reason for Referral * MRI/CAT/PET Scan (Routine) - Closed Specialty Diagnoses / Procedures Referred By Contac t Referred To Contact Radiology Procedures MRI Pelvis W WO Contrast Marlene Johnson MD [address] [place] [address] Phone: tel: Referral ID Status Reason Start Date Expiration Date Visits Re quested Visits Authorized [id number] Closed 05/13/2025 06/12/2026 1 1 M POWER PLANT OPERATOR Encounter Details Date Type Department Care Team (Late st Contact Info) Description 05/13/2025 Orders Only [facility] Medicine Endocrinology Metabolism and Lipid [address] [facility] Advanced Medicine 13th [place] [address] [place] [id number] Marlene Johnson MD [address] [place] [address] Social History Tobacco Use Types [...] on file Legal Sex Male 6:36 AM STEAM POWER PLANT OPERATOR Gender Identity Not on file Sexual Orientation Not on file documented as of this encounter Plan of Treatment Not on file documented as of this encounter Procedures Procedure Name Priority Date/Time Associated Diagnosis Comments MRI PELVIS W WO CONTRAST Schedule Routine, Read Routine (OP Routine) 06/11/2024 4:11 PM STEAM POWER PLANT OPERATOR documented in this encounter Results * MRI Pelvis W WO Contrast (06/11/2024 4:11 PM STEAM POWER PLANT OPERATOR) Anatomical Region Laterality Modality Pelvis N/A Magnetic Resonan ce Historical Provider MD [facility]NIGHT MRI PROCEDURES Final Result documented in this encounter Visit Diagnoses Not on filedocumented in this encounter Care Teams Dice Person Relationship Specialty Start Date End Date Herrera Rivera MD [address] [place] [address] PCP - General Family Medicine 04/22/25 documented as of this encounter
[2025-05-14 06:24] LABS: Add Urine Microscopic? YES; Appearance Urine Clear (Clear); Glucose Urine UA Negative (Negative); Leukocyte Esterase Ur 3+ LEU/UL (Negative); Nitrate Urine Negative (Negative); Non Pathogenic Casts 0-2; Specific Grav Ur 1.006 (1.001-1.035)
[2025-05-14 06:55] VITALS: BP 118/78; PULSE 53; RESP 18; O2SAT 96
== END 2025-05-14 06:55 | disposition home or self-care (01) ==
PROVIDERS: Emergency Provider Student in an Organized Health Care Education/Training Program
DX: R33.9 Retention of urine, unspecified (principal); Z77.22 Contact with and (suspected) exposure to environmental tobacco smoke (acute) (chronic)
CPT/HCPCS: 51702; 81001; 87077; 87086; 87186; 99283